=== PATIENT | female | born 1955 | race Hispanic/Latino ===

== ENCOUNTER 2020-05-19 16:18 | Inpatient (IN) | payer BC, MEDICARE ==
[~2020-05-19] VITALS: Ht 162.6 cm; Wt 84.5 kg
[2020-05-19] MEDS ORDERED: ASPIRIN 325 MG TABLET ONE (16:43)
[2020-05-19 16:59] LABS: BASOPHILS % (AUTO) 0.1 % (0.0-5.0); EOSINOPHILS % (AUTO) 0.4 % (0.0-8.0); HEMATOCRIT 34.5 % (36-48); LYMPHOCYTES % (AUTO) 5.2 % (21.0-51.0); MEAN CORPUSCULAR HEMOGLOBIN 27.9 pg (27.0-33.0); MEAN CORPUSCULAR HGB CONC 31.9 g/dL (32.0-36.0); MEAN CORPUSCULAR VOLUME 87.6 fL (79-99); MONOCYTES % (AUTO) 7.8 % (3.0-13.0); NEUTROPHILS % (AUTO) 85.9 % (40.0-77.0); PLATELET COUNT (AUTO) 170 K/uL (130-400); RED BLOOD CELL COUNT(AUTO) 3.94 MIL/uL (4.00-5.50); RED CELL DISTRIBUTION WIDTH 13.2 % (11.0-15.5); WHITE BLOOD COUNT (AUTO) 8.5 K/uL (4.8-10.8)
[2020-05-19 17:13] LABS: INR 1.07 (0.85-1.15); PROTHROMBIN TIME 11.4 SEC (9.6-11.6)
[2020-05-19 17:14] LABS: PARTIAL THROMBOPLASTIN TIME 26.6 SEC (26.3-35.5)
[2020-05-19 17:17] LABS: ALBUMIN 3.4 g/dL (3.5-5.0); BILIRUBIN,TOTAL 2.8 mg/dL (0.2-1.0); TOTAL PROTEIN, SERUM 7.9 g/dL (6.0-8.3)
[2020-05-19] MEDS ORDERED: IOHEXOL-350 75 ML VIAL IV ONE (19:14)
[2020-05-19] MEDS: 0.9%NACL 1000ML 1,000 ML IV SCH (19:15)
[2020-05-19] MEDS ORDERED: ACETAMINOPHEN 325 MG TAB PO PRN (19:15)
[2020-05-19] MEDS ORDERED: ONDANSETRON 4MG INJ IV PRN (19:15)
[2020-05-19] MEDS ORDERED: ONDANSETRON 4MG INJ ONE (19:23)
[2020-05-19] MEDS ORDERED: KETOROLAC 15MG/ML VIAL (15MG/ML) ONE (19:23)
[2020-05-19] MEDS ORDERED: HYDROMORPHONE 0.5 MG SYG (0.5MG/0.5ML) IV PRN (19:30)
[2020-05-19] MEDS ORDERED: HYDROMORPHONE 1 MG INJ IVP PRN (19:30)
[2020-05-19 19:50] LABS: HEMOGLOBIN A1C 8.2 % (4.0-6.0)
[2020-05-19] MEDS ORDERED: ZOSYN 3.375GM+NS 50ML 50 ML IV ONE (20:00)
[2020-05-19] MEDS ORDERED: FAMOTIDINE 20MG VIAL IV ONE (20:01)
[2020-05-19 20:44] LABS: APPEARANCE,URINE Clear (CLEAR); BILIRUBIN,URINE Moderate (NEGATIVE); COLOR,URINE Dark Yellow (YELLOW); GLUCOSE, URINE (UA) Negative (NEGATIVE); KETONES,URINE 40 mg/dL (NEGATIVE); LEUKOCYTE ESTERASE ,URINE Trace (NEGATIVE); NITRATE,URINE Negative (NEGATIVE); OCCULT BLOOD,URINE Trace (NEGATIVE); PROTEIN,URINE POS 1+ mg/dL (NEGATIVE)
[2020-05-19] MEDS: FAMOTIDINE 20MG VIAL IV SCH (21:00)
[2020-05-19 21:07] LABS: BACTERIA,URINE Few /HPF (None Seen); MUCUS,URINE Few LPF (None Seen); SQUAMOUS EPITHELIAL CELL,UR Moderate /HPF (0-2)
[2020-05-19 22:18] LABS: ALBUMIN 3.2 g/dL (3.5-5.0); BILIRUBIN,DIRECT 2.5 mg/dL (0.0-0.3); BILIRUBIN,TOTAL 2.9 mg/dL (0.2-1.0); TOTAL PROTEIN, SERUM 7.4 g/dL (6.0-8.3)
[2020-05-20] MEDS ORDERED: ZOSYN 3.375GM+NS 50ML 50 ML IV ONE (03:53)
[2020-05-20 05:00] LABS: BASOPHILS % (AUTO) 0.3 % (0.0-5.0); EOSINOPHILS % (AUTO) 0.8 % (0.0-8.0); HEMATOCRIT 29.6 % (36-48); LYMPHOCYTES % (AUTO) 12.4 % (21.0-51.0); MEAN CORPUSCULAR HEMOGLOBIN 28.7 pg (27.0-33.0); MEAN CORPUSCULAR HGB CONC 33.1 g/dL (32.0-36.0); MEAN CORPUSCULAR VOLUME 86.8 fL (79-99); MONOCYTES % (AUTO) 10.2 % (3.0-13.0); NEUTROPHILS % (AUTO) 75.8 % (40.0-77.0); PLATELET COUNT (AUTO) 151 K/uL (130-400); RED BLOOD CELL COUNT(AUTO) 3.41 MIL/uL (4.00-5.50); RED CELL DISTRIBUTION WIDTH 13.2 % (11.0-15.5); WHITE BLOOD COUNT (AUTO) 5.9 K/uL (4.8-10.8)
[2020-05-20] MEDS: ZOSYN 3.375GM+NS 50ML 50 ML IV SCH ×3 (05:00→20:17)
[2020-05-20 05:18] LABS: ALBUMIN 3.2 g/dL (3.5-5.0); BILIRUBIN,DIRECT 3.2 mg/dL (0.0-0.3); BILIRUBIN,TOTAL 3.7 mg/dL (0.2-1.0); CREATININE 0.9 mg/dL (0.5-1.5); POTASSIUM 4.1 mmol/L (3.5-5.1); TOTAL PROTEIN, SERUM 6.8 g/dL (6.0-8.3)
[2020-05-20 08:53] VITALS: BP 155/71
[2020-05-20] MEDS: FAMOTIDINE 20MG VIAL IV SCH ×2 (10:36→21:38)
[2020-05-20] MEDS: BENAZEPRIL HCL 10 MG TABLET PO SCH (11:45)
[2020-05-20] MEDS: CARVEDILOL 12.5 MG TABLET PO SCH ×2 (11:45→20:16)
[2020-05-20] MEDS: 0.9%NACL 1000ML 1,000 ML IV SCH ×2 (11:46→17:53)
[2020-05-20 12:00] VITALS: BP 165/72
[2020-05-20 17:39] VITALS: BP 135/66
[2020-05-20] MEDS: ACETAMINOPHEN 325 MG TAB PO PRN (20:15)
[2020-05-20 20:19] VITALS: BP 161/52
[2020-05-20] MEDS ORDERED: BENA40TA92 PO (20:50)
[2020-05-20] MEDS ORDERED: FLUO40CA7 PO (20:50)
[2020-05-20] MEDS ORDERED: SITA1TAB6 PO (20:50)
[2020-05-20] MEDS ORDERED: ROSU10TA28 PO (20:50)
[2020-05-20] MEDS ORDERED: LEVO75TA4 PO (20:50)
[2020-05-20] MEDS ORDERED: CARV25TA77 PO (20:50)
[2020-05-20 23:47] VITALS: BP 120/69
[2020-05-21] MEDS: 0.9%NACL 1000ML 1,000 ML IV SCH ×2 (02:56→11:15)
[2020-05-21 03:47] VITALS: BP 161/63
[2020-05-21] MEDS: ZOSYN 3.375GM+NS 50ML 50 ML IV SCH ×3 (04:23→20:48)
[2020-05-21 05:30] LABS: BASOPHILS % (AUTO) 0.4 % (0.0-5.0); EOSINOPHILS % (AUTO) 4.1 % (0.0-8.0); HEMATOCRIT 29.6 % (36-48); LYMPHOCYTES % (AUTO) 20.8 % (21.0-51.0); MEAN CORPUSCULAR HEMOGLOBIN 27.9 pg (27.0-33.0); MEAN CORPUSCULAR HGB CONC 31.8 g/dL (32.0-36.0); MEAN CORPUSCULAR VOLUME 87.8 fL (79-99); MONOCYTES % (AUTO) 8.5 % (3.0-13.0); NEUTROPHILS % (AUTO) 65.3 % (40.0-77.0); PLATELET COUNT (AUTO) 167 K/uL (130-400); RED BLOOD CELL COUNT(AUTO) 3.37 MIL/uL (4.00-5.50); RED CELL DISTRIBUTION WIDTH 13.4 % (11.0-15.5); WHITE BLOOD COUNT (AUTO) 5.4 K/uL (4.8-10.8)
[2020-05-21 06:16] LABS: ALBUMIN 2.8 g/dL (3.5-5.0); BILIRUBIN,TOTAL 1.8 mg/dL (0.2-1.0); CREATININE 0.8 mg/dL (0.5-1.5); POTASSIUM 3.5 mmol/L (3.5-5.1); TOTAL PROTEIN, SERUM 6.7 g/dL (6.0-8.3)
[2020-05-21] MEDS: LEVOTHYROXINE 75 MCG TABLET PO SCH (06:46)
[2020-05-21 07:30] VITALS: BP 167/71
[2020-05-21] MEDS: BENAZEPRIL HCL 10 MG TABLET PO SCH (10:12)
[2020-05-21] MEDS: CARVEDILOL 12.5 MG TABLET PO SCH ×2 (10:13→20:51)
[2020-05-21 11:00] VITALS: BP 173/70
[2020-05-21 16:00] VITALS: BP 139/73
[2020-05-21 20:12] VITALS: BP 158/76
[2020-05-21] MEDS: FAMOTIDINE 20MG VIAL IV SCH (20:46)
[2020-05-21] MEDS: ACETAMINOPHEN 325 MG TAB PO PRN (20:49)
[2020-05-22 00:16] VITALS: BP 153/74
[2020-05-22 04:20] VITALS: BP 152/53
[2020-05-22] MEDS: ZOSYN 3.375GM+NS 50ML 50 ML IV SCH ×3 (05:13→20:38)
[2020-05-22] MEDS: 0.9%NACL 1000ML 1,000 ML IV SCH ×2 (05:14→09:00)
[2020-05-22] MEDS: LEVOTHYROXINE 75 MCG TABLET PO SCH (05:14)
[2020-05-22 06:23] LABS: BASOPHILS % (AUTO) 0.3 % (0.0-5.0); EOSINOPHILS % (AUTO) 3.4 % (0.0-8.0); HEMATOCRIT 30.7 % (36-48); LYMPHOCYTES % (AUTO) 24.6 % (21.0-51.0); MEAN CORPUSCULAR HGB CONC 31.9 g/dL (32.0-36.0); MEAN CORPUSCULAR VOLUME 87.7 fL (79-99); MONOCYTES % (AUTO) 8.7 % (3.0-13.0); NEUTROPHILS % (AUTO) 62.2 % (40.0-77.0); PLATELET COUNT (AUTO) 189 K/uL (130-400); RED CELL DISTRIBUTION WIDTH 13.4 % (11.0-15.5); WHITE BLOOD COUNT (AUTO) 6.1 K/uL (4.8-10.8)
[2020-05-22 06:58] LABS: ALBUMIN 2.9 g/dL (3.5-5.0); BILIRUBIN,TOTAL 1.1 mg/dL (0.2-1.0); CREATININE 0.9 mg/dL (0.5-1.5); POTASSIUM 3.4 mmol/L (3.5-5.1); THYROID STIMULATING HORMONE 4.89 uIU/mL (0.36-3.74); TOTAL PROTEIN, SERUM 6.9 g/dL (6.0-8.3)
[2020-05-22 08:00] VITALS: BP 163/69
[2020-05-22] MEDS ORDERED: AMLODIPINE 5 MG TAB PO SCH (09:00)
[2020-05-22] MEDS: CARVEDILOL 12.5 MG TABLET PO SCH ×2 (09:00→20:38)
[2020-05-22] MEDS ORDERED: LIDOCAINE HCL-MPF 1% 2ML VIAL IV PRN (09:30)
[2020-05-22] MEDS ORDERED: POTASSIUM CHLORIDE 20MEQ/100ML 100 ML IV PRN (09:30)
[2020-05-22] MEDS ORDERED: POTASSIUM CHLORIDE 10% ELIXIR 20 MEQ/15 ML UDCUP PO PRN (09:30)
[2020-05-22] MEDS ORDERED: MAGNESIUM 2GM PREMIX 50ML 50 ML IV PRN (09:30)
[2020-05-22] MEDS ORDERED: LEVOTHYROXINE 75 MCG TABLET PO SCH (09:46)
[2020-05-22] MEDS: SITAGLIPTIN PHOS PO SCH ×2 (10:02→20:46)
[2020-05-22] MEDS: METFORMIN HCL PO SCH ×2 (10:02→20:46)
[2020-05-22] MEDS: FLUOXETINE HCL 20 MG CAPSULE PO SCH (10:33)
[2020-05-22] MEDS: FAMOTIDINE 20MG VIAL IV SCH (10:33)
[2020-05-22] MEDS: BENAZEPRIL HCL 10 MG TABLET PO SCH ×2 (10:34→20:37)
[2020-05-22 11:00] VITALS: BP 156/80
[2020-05-22] MEDS: KCL 20 MEQ ERTAB PO PRN ×2 (12:26→14:57)
[2020-05-22 16:00] VITALS: BP 164/74
[2020-05-22 20:16] VITALS: BP 169/76
[2020-05-22] MEDS: ATORVASTATIN 20 MG TABLET PO SCH (20:37)
[2020-05-23 00:16] VITALS: BP 175/78
[2020-05-23] MEDS: 0.9%NACL 1000ML 1,000 ML IV SCH ×3 (00:22→20:40)
[2020-05-23 04:20] VITALS: BP 147/71
[2020-05-23 06:07] LABS: HEMATOCRIT 30.6 % (36-48); MEAN CORPUSCULAR HGB CONC 31.7 g/dL (32.0-36.0); MEAN CORPUSCULAR VOLUME 88.2 fL (79-99); RED BLOOD CELL COUNT(AUTO) 3.47 MIL/uL (4.00-5.50); RED CELL DISTRIBUTION WIDTH 13.5 % (11.0-15.5); WHITE BLOOD COUNT (AUTO) 6.4 K/uL (4.8-10.8)
[2020-05-23] MEDS: LEVOTHYROXINE 75 MCG TABLET PO SCH (06:20)
[2020-05-23] MEDS: ZOSYN 3.375GM+NS 50ML 50 ML IV SCH ×3 (06:20→20:26)
[2020-05-23 06:21] LABS: ALBUMIN 2.8 g/dL (3.5-5.0); BILIRUBIN,TOTAL 0.9 mg/dL (0.2-1.0); CREATININE 0.9 mg/dL (0.5-1.5); MAGNESIUM 1.6 mg/dL (1.80-2.40); POTASSIUM 3.3 mmol/L (3.5-5.1); TOTAL PROTEIN, SERUM 6.8 g/dL (6.0-8.3)
[2020-05-23 08:30] VITALS: BP 151/75
[2020-05-23] MEDS: METFORMIN HCL PO SCH ×2 (09:00→20:40)
[2020-05-23] MEDS: SITAGLIPTIN PHOS PO SCH ×2 (09:00→20:40)
[2020-05-23] MEDS: BENAZEPRIL HCL 10 MG TABLET PO SCH ×2 (09:28→20:28)
[2020-05-23] MEDS: FLUOXETINE HCL 20 MG CAPSULE PO SCH (09:28)
[2020-05-23] MEDS: CARVEDILOL 12.5 MG TABLET PO SCH ×2 (09:29→20:40)
[2020-05-23 11:35] VITALS: BP 159/79
[2020-05-23 16:00] VITALS: BP 154/74
[2020-05-23] MEDS: KCL 20 MEQ ERTAB PO PRN ×2 (16:07→18:09)
[2020-05-23 20:12] VITALS: BP 137/79
[2020-05-23] MEDS: ATORVASTATIN 20 MG TABLET PO SCH (20:27)
[2020-05-23] MEDS: FAMOTIDINE 20MG VIAL IV SCH (20:28)
[2020-05-24] VITALS (27 sets, daily range): BP systolic 124–192; BP diastolic 68–99
[2020-05-24 06:12] LABS: HEMATOCRIT 33.8 % (36-48); MEAN CORPUSCULAR HGB CONC 31.7 g/dL (32.0-36.0); MEAN CORPUSCULAR VOLUME 88.5 fL (79-99); RED BLOOD CELL COUNT(AUTO) 3.82 MIL/uL (4.00-5.50); RED CELL DISTRIBUTION WIDTH 13.6 % (11.0-15.5); WHITE BLOOD COUNT (AUTO) 6.9 K/uL (4.8-10.8)
[2020-05-24] MEDS: LEVOTHYROXINE 75 MCG TABLET PO SCH (06:30)
[2020-05-24] MEDS: ZOSYN 3.375GM+NS 50ML 50 ML IV SCH ×3 (06:31→19:59)
[2020-05-24 07:00] LABS: ALBUMIN 3.4 g/dL (3.5-5.0); CREATININE 0.9 mg/dL (0.5-1.5); MAGNESIUM 2.4 mg/dL (1.80-2.40); POTASSIUM 3.7 mmol/L (3.5-5.1)
[2020-05-24] MEDS: METFORMIN HCL PO SCH ×2 (08:04→20:59)
[2020-05-24] MEDS: FLUOXETINE HCL 20 MG CAPSULE PO SCH (08:04)
[2020-05-24] MEDS: SITAGLIPTIN PHOS PO SCH ×2 (08:04→20:59)
[2020-05-24] MEDS: 0.9%NACL 1000ML 1,000 ML IV SCH ×3 (08:04→10:25)
[2020-05-24] MEDS ORDERED: BUPIVACAINE/PF 0.5% 30ML VIAL ONE (08:17)
[2020-05-24] MEDS ORDERED: ONDANSETRON 4MG INJ ONE (08:53)
[2020-05-24] MEDS ORDERED: LIDOCAINE PF 100MG/5ML (2%) SYRINGE 5ML ONE (08:53)
[2020-05-24] MEDS ORDERED: PROPOFOL 10 MG/ML 20ML VIAL IV ONE (08:53)
[2020-05-24] MEDS ORDERED: DEXAMETHASONE SOD PHOSPHATE 10MG/ML 1ML VIAL ONE (08:53)
[2020-05-24] MEDS ORDERED: MIDAZOLAM HCL 1 MG/ML 2ML VIAL ONE (08:54)
[2020-05-24] MEDS ORDERED: FENTANYL CITRATE PF 50 MCG/1 ML 2ML VIAL ONE (08:54)
[2020-05-24] MEDS ORDERED: ROCURONIUM 10MG/1ML SYR 10 MG/ML ML ONE (08:55)
[2020-05-24] MEDS ORDERED: NEOSTIGMINE 5MG/5ML SYR IV ONE (10:13)
[2020-05-24] MEDS ORDERED: GLYCOPYRROLATE 1 MG/5 ML SYRINGE ONE (10:13)
[2020-05-24] MEDS ORDERED: MEPERIDINE-PF 25 MG/ML SYG ONE (10:51)
[2020-05-24] MEDS: MEPERIDINE-PF 25 MG/ML SYG ONE ×2 (11:01→11:40)
[2020-05-24] MEDS: CARVEDILOL 12.5 MG TABLET PO SCH ×2 (13:07→19:59)
[2020-05-24] MEDS: BENAZEPRIL HCL 10 MG TABLET PO SCH ×2 (13:08→19:57)
[2020-05-24] MEDS: ATORVASTATIN 20 MG TABLET PO SCH (19:57)
[2020-05-24] MEDS: FAMOTIDINE 20MG VIAL IV SCH (19:57)
[2020-05-25] VITALS (7 sets, daily range): BP systolic 126–180; BP diastolic 63–99
[2020-05-25] MEDS: ZOSYN 3.375GM+NS 50ML 50 ML IV SCH ×3 (03:50→20:19)
[2020-05-25] MEDS: HYDROMORPHONE 1 MG INJ IVP PRN ×3 (03:50→20:23)
[2020-05-25] MEDS: 0.9%NACL 1000ML 1,000 ML IV SCH ×2 (03:50→14:29)
[2020-05-25 04:45] LABS: HEMATOCRIT 35.5 % (36-48); MEAN CORPUSCULAR HEMOGLOBIN 28.2 pg (27.0-33.0); MEAN CORPUSCULAR HGB CONC 31.8 g/dL (32.0-36.0); MEAN CORPUSCULAR VOLUME 88.5 fL (79-99); RED BLOOD CELL COUNT(AUTO) 4.01 MIL/uL (4.00-5.50); RED CELL DISTRIBUTION WIDTH 13.9 % (11.0-15.5); WHITE BLOOD COUNT (AUTO) 15.2 K/uL (4.8-10.8)
[2020-05-25 05:04] LABS: ALBUMIN 3.1 g/dL (3.5-5.0); BILIRUBIN,TOTAL 1.7 mg/dL (0.2-1.0); CREATININE 0.8 mg/dL (0.5-1.5); POTASSIUM 3.6 mmol/L (3.5-5.1); TOTAL PROTEIN, SERUM 7.7 g/dL (6.0-8.3)
[2020-05-25] MEDS: LEVOTHYROXINE 75 MCG TABLET PO SCH (05:30)
[2020-05-25] MEDS: SITAGLIPTIN PHOS PO SCH ×2 (09:00→20:33)
[2020-05-25] MEDS: METFORMIN HCL PO SCH ×2 (09:00→20:33)
[2020-05-25] MEDS: BENAZEPRIL HCL 10 MG TABLET PO SCH ×2 (09:54→20:20)
[2020-05-25] MEDS: FLUOXETINE HCL 20 MG CAPSULE PO SCH (09:54)
[2020-05-25] MEDS: CARVEDILOL 12.5 MG TABLET PO SCH ×2 (09:55→20:22)
[2020-05-25] MEDS: HYDROMORPHONE 0.5 MG SYG (0.5MG/0.5ML) IVP PRN (14:28)
[2020-05-25] MEDS: ATORVASTATIN 20 MG TABLET PO SCH (20:19)
[2020-05-25] MEDS: FAMOTIDINE 20MG VIAL IV SCH (20:21)
[2020-05-26] MEDS: 0.9%NACL 1000ML 1,000 ML IV SCH ×5 (01:11→20:02)
[2020-05-26 04:00] VITALS: BP 153/69
[2020-05-26] MEDS: LEVOTHYROXINE 75 MCG TABLET PO SCH (05:09)
[2020-05-26] MEDS: ZOSYN 3.375GM+NS 50ML 50 ML IV SCH ×3 (05:09→19:52)
[2020-05-26 06:17] LABS: BASOPHILS % (AUTO) 0.1 % (0.0-5.0); HEMATOCRIT 32.8 % (36-48); LYMPHOCYTES % (AUTO) 5.4 % (21.0-51.0); MEAN CORPUSCULAR HEMOGLOBIN 28.5 pg (27.0-33.0); MEAN CORPUSCULAR HGB CONC 32.3 g/dL (32.0-36.0); MEAN CORPUSCULAR VOLUME 88.2 fL (79-99); MONOCYTES % (AUTO) 3.4 % (3.0-13.0); NEUTROPHILS % (AUTO) 90.2 % (40.0-77.0); PLATELET COUNT (AUTO) 237 K/uL (130-400); RED BLOOD CELL COUNT(AUTO) 3.72 MIL/uL (4.00-5.50); WHITE BLOOD COUNT (AUTO) 16.2 K/uL (4.8-10.8)
[2020-05-26 06:34] LABS: ALBUMIN 2.5 g/dL (3.5-5.0); CREATININE 0.9 mg/dL (0.5-1.5); POTASSIUM 3.8 mmol/L (3.5-5.1); TOTAL PROTEIN, SERUM 7.1 g/dL (6.0-8.3)
[2020-05-26 08:20] VITALS: BP 136/70
[2020-05-26] MEDS: SITAGLIPTIN PHOS PO SCH ×2 (09:00→19:53)
[2020-05-26] MEDS: METFORMIN HCL PO SCH ×2 (09:00→19:53)
[2020-05-26] MEDS: FLUOXETINE HCL 20 MG CAPSULE PO SCH (09:40)
[2020-05-26] MEDS: BENAZEPRIL HCL 10 MG TABLET PO SCH ×2 (09:41→19:53)
[2020-05-26] MEDS: CARVEDILOL 12.5 MG TABLET PO SCH ×2 (09:42→19:53)
[2020-05-26 12:34] VITALS: BP 180/78
[2020-05-26] MEDS ORDERED: DEXTROSE 50%-WATER 50 ML DISP.SYRIN IV PRN (16:15)
[2020-05-26] MEDS ORDERED: GLUCAGON 1MG KIT 1 MG ML IM PRN (16:15)
[2020-05-26] MEDS: INSULIN HUMULIN R 100 UNIT/ML 3ML SQ SCH ×2 (16:30→20:01)
[2020-05-26 19:18] VITALS: BP 136/85
[2020-05-26] MEDS: ATORVASTATIN 20 MG TABLET PO SCH (19:53)
[2020-05-26] MEDS: FAMOTIDINE 20MG VIAL IV SCH (19:53)
[2020-05-26] MEDS: HYDROMORPHONE 0.5 MG SYG (0.5MG/0.5ML) IVP PRN (19:57)
[2020-05-26 20:00] VITALS: BP 142/76
[2020-05-27] VITALS (7 sets, daily range): BP systolic 145–174; BP diastolic 72–88
[2020-05-27] MEDS: 0.9%NACL 1000ML 1,000 ML IV SCH ×6 (04:39→21:24)
[2020-05-27] MEDS: ZOSYN 3.375GM+NS 50ML 50 ML IV SCH ×3 (04:40→19:44)
[2020-05-27 04:46] LABS: HEMATOCRIT 30.5 % (36-48); MEAN CORPUSCULAR HEMOGLOBIN 28.6 pg (27.0-33.0); MEAN CORPUSCULAR HGB CONC 32.5 g/dL (32.0-36.0); MEAN CORPUSCULAR VOLUME 88.2 fL (79-99); PLATELET COUNT (AUTO) 231 K/uL (130-400); RED BLOOD CELL COUNT(AUTO) 3.46 MIL/uL (4.00-5.50); RED CELL DISTRIBUTION WIDTH 14.1 % (11.0-15.5); WHITE BLOOD COUNT (AUTO) 14.8 K/uL (4.8-10.8)
[2020-05-27 05:07] LABS: ALBUMIN 2.3 g/dL (3.5-5.0); BILIRUBIN,TOTAL 1.9 mg/dL (0.2-1.0); CREATININE 0.8 mg/dL (0.5-1.5); POTASSIUM 3.3 mmol/L (3.5-5.1); TOTAL PROTEIN, SERUM 6.8 g/dL (6.0-8.3)
[2020-05-27] MEDS: KCL 20 MEQ ERTAB PO PRN ×2 (05:18→19:06)
[2020-05-27] MEDS: LEVOTHYROXINE 75 MCG TABLET PO SCH (05:18)
[2020-05-27 06:22] LABS: BAND NEUTROPHILS % (MANUAL) 1 % (0-2); LYMPHOCYTES % (MANUAL) 4 % (22-44); MONOCYTES % (MANUAL) 1 % (2-9); SEGMENTED NEUTROPHILS % 94 % (40-70)
[2020-05-27 06:23] LABS: MAN.DIFF COMMENT-IMPRESSION MANUAL DIFFERENTIAL; PLATELET MORPHOLOGY COMMENT ADEQUATE
[2020-05-27] MEDS: INSULIN HUMULIN R 100 UNIT/ML 3ML SQ SCH ×4 (07:08→21:00)
[2020-05-27] MEDS: METFORMIN HCL PO SCH ×2 (09:00→21:00)
[2020-05-27] MEDS: SITAGLIPTIN PHOS PO SCH ×2 (09:00→21:00)
[2020-05-27] MEDS: CARVEDILOL 12.5 MG TABLET PO SCH ×2 (09:50→21:24)
[2020-05-27] MEDS: FLUOXETINE HCL 20 MG CAPSULE PO SCH (09:51)
[2020-05-27] MEDS: BENAZEPRIL HCL 10 MG TABLET PO SCH ×2 (09:51→21:24)
[2020-05-27] MEDS ORDERED: POTASSIUM CHLORIDE 20MEQ/100ML 100 ML IV PRN (18:30)
[2020-05-27] MEDS ORDERED: POTASSIUM CHLORIDE 10% ELIXIR 20 MEQ/15 ML UDCUP PO PRN (18:30)
[2020-05-27] MEDS ORDERED: LIDOCAINE HCL-MPF 1% 2ML VIAL IV PRN (18:30)
[2020-05-27] MEDS ORDERED: KCL 20 MEQ ERTAB PO PRN (18:30)
[2020-05-27] MEDS: HYDROMORPHONE 0.5 MG SYG (0.5MG/0.5ML) IVP PRN (19:17)
[2020-05-27] MEDS: ATORVASTATIN 20 MG TABLET PO SCH (21:23)
[2020-05-27] MEDS: FAMOTIDINE 20MG VIAL IV SCH (21:24)
[2020-05-28 03:23] VITALS: BP 155/82
[2020-05-28 04:52] LABS: BASOPHILS % (AUTO) 0.1 % (0.0-5.0); LYMPHOCYTES % (AUTO) 3.7 % (21.0-51.0); MEAN CORPUSCULAR HEMOGLOBIN 28.1 pg (27.0-33.0); MEAN CORPUSCULAR HGB CONC 32.3 g/dL (32.0-36.0); MEAN CORPUSCULAR VOLUME 87.1 fL (79-99); MONOCYTES % (AUTO) 4.4 % (3.0-13.0); NEUTROPHILS % (AUTO) 91.3 % (40.0-77.0); PLATELET COUNT (AUTO) 253 K/uL (130-400); RED BLOOD CELL COUNT(AUTO) 3.56 MIL/uL (4.00-5.50); WHITE BLOOD COUNT (AUTO) 13.6 K/uL (4.8-10.8)
[2020-05-28 05:15] LABS: ALBUMIN 2.1 g/dL (3.5-5.0); BILIRUBIN,TOTAL 6.4 mg/dL (0.2-1.0); CREATININE 0.6 mg/dL (0.5-1.5); POTASSIUM 3.4 mmol/L (3.5-5.1); TOTAL PROTEIN, SERUM 6.5 g/dL (6.0-8.3)
[2020-05-28] MEDS: ZOSYN 3.375GM+NS 50ML 50 ML IV SCH ×3 (05:18→20:25)
[2020-05-28] MEDS: LEVOTHYROXINE 75 MCG TABLET PO SCH (05:21)
[2020-05-28] MEDS: INSULIN HUMULIN R 100 UNIT/ML 3ML SQ SCH ×4 (05:32→21:00)
[2020-05-28] MEDS: CARVEDILOL 12.5 MG TABLET PO SCH ×2 (08:33→20:23)
[2020-05-28] MEDS: BENAZEPRIL HCL 10 MG TABLET PO SCH ×2 (08:33→20:24)
[2020-05-28] MEDS: FLUOXETINE HCL 20 MG CAPSULE PO SCH (08:33)
[2020-05-28 08:38] VITALS: BP 164/84
[2020-05-28] MEDS: METFORMIN HCL PO SCH ×2 (08:39→20:24)
[2020-05-28] MEDS: SITAGLIPTIN PHOS PO SCH ×2 (08:39→20:24)
[2020-05-28] MEDS: 0.9%NACL 1000ML 1,000 ML IV SCH ×4 (11:15→23:15)
[2020-05-28 11:36] VITALS: BP 168/82
[2020-05-28 16:38] VITALS: BP 170/80
[2020-05-28] MEDS: KCL 20 MEQ ERTAB PO PRN (18:03)
[2020-05-28] MEDS: ACETAMINOPHEN 325 MG TAB PO PRN (18:05)
[2020-05-28] MEDS: HYDROMORPHONE 0.5 MG SYG (0.5MG/0.5ML) IVP PRN ×2 (18:10→20:25)
[2020-05-28 20:00] VITALS: BP 98/52
[2020-05-28] MEDS: ATORVASTATIN 20 MG TABLET PO SCH (20:23)
[2020-05-28] MEDS: FAMOTIDINE 20MG VIAL IV SCH (20:24)
[2020-05-29] VITALS (27 sets, daily range): BP systolic 103–143; BP diastolic 50–77
[2020-05-29] MEDS: ZOSYN 3.375GM+NS 50ML 50 ML IV SCH ×3 (05:46→20:23)
[2020-05-29] MEDS: LEVOTHYROXINE 75 MCG TABLET PO SCH (05:47)
[2020-05-29] MEDS: 0.9%NACL 1000ML 1,000 ML IV SCH ×4 (05:49→17:09)
[2020-05-29] MEDS: INSULIN HUMULIN R 100 UNIT/ML 3ML SQ SCH ×4 (06:04→20:34)
[2020-05-29 06:23] LABS: BASOPHILS % (AUTO) 0.2 % (0.0-5.0); HEMATOCRIT 30.6 % (36-48); LYMPHOCYTES % (AUTO) 3.3 % (21.0-51.0); MEAN CORPUSCULAR HEMOGLOBIN 28.2 pg (27.0-33.0); MEAN CORPUSCULAR VOLUME 88.2 fL (79-99); MONOCYTES % (AUTO) 5.3 % (3.0-13.0); NEUTROPHILS % (AUTO) 90.6 % (40.0-77.0); PLATELET COUNT (AUTO) 256 K/uL (130-400); RED BLOOD CELL COUNT(AUTO) 3.47 MIL/uL (4.00-5.50); RED CELL DISTRIBUTION WIDTH 14.6 % (11.0-15.5); WHITE BLOOD COUNT (AUTO) 17.5 K/uL (4.8-10.8)
[2020-05-29 06:39] LABS: ALBUMIN 1.8 g/dL (3.5-5.0); BILIRUBIN,TOTAL 3.2 mg/dL (0.2-1.0); CREATININE 1.9 mg/dL (0.5-1.5); POTASSIUM 3.4 mmol/L (3.5-5.1); TOTAL PROTEIN, SERUM 6.3 g/dL (6.0-8.3)
[2020-05-29] MEDS: METFORMIN HCL PO SCH ×2 (07:52→20:34)
[2020-05-29] MEDS: SITAGLIPTIN PHOS PO SCH ×2 (07:52→20:34)
[2020-05-29] MEDS ORDERED: PROPOFOL 10 MG/ML 20ML VIAL IV ONE (07:52)
[2020-05-29] MEDS ORDERED: SUCCINYLCHOLINE 200MG/10ML SYR ONE (07:52)
[2020-05-29] MEDS: INDOMETHACIN 50 MG SUPP.RECT RC SCH (08:00)
[2020-05-29] MEDS ORDERED: IOHEXOL-350 50ML VIAL IV ONE (08:07)
[2020-05-29] MEDS ORDERED: EPHEDRINE SULFATE 50 MG/ML AMPULE ONE (08:12)
[2020-05-29] MEDS ORDERED: PHENYLEPHRINE HCL 10 MG/ML 1ML VIAL IV ONE (08:36)
[2020-05-29] MEDS: BENAZEPRIL HCL 10 MG TABLET PO SCH ×2 (09:00→20:23)
[2020-05-29] MEDS: CARVEDILOL 12.5 MG TABLET PO SCH ×2 (09:00→20:23)
[2020-05-29] MEDS: FLUOXETINE HCL 20 MG CAPSULE PO SCH (09:00)
[2020-05-29] MEDS: FAMOTIDINE 20MG VIAL IV SCH (20:22)
[2020-05-29] MEDS: ATORVASTATIN 20 MG TABLET PO SCH (20:22)
[2020-05-30 03:34] VITALS: BP 125/62
[2020-05-30] MEDS: 0.9%NACL 1000ML 1,000 ML IV SCH ×5 (04:12→23:15)
[2020-05-30] MEDS: ZOSYN 3.375GM+NS 50ML 50 ML IV SCH ×3 (05:05→20:19)
[2020-05-30] MEDS: LEVOTHYROXINE 75 MCG TABLET PO SCH (05:05)
[2020-05-30] MEDS: INSULIN HUMULIN R 100 UNIT/ML 3ML SQ SCH ×4 (05:51→20:30)
[2020-05-30 06:09] LABS: BASOPHILS % (AUTO) 0.1 % (0.0-5.0); EOSINOPHILS % (AUTO) 0.3 % (0.0-8.0); LYMPHOCYTES % (AUTO) 3.9 % (21.0-51.0); MEAN CORPUSCULAR HEMOGLOBIN 28.3 pg (27.0-33.0); MEAN CORPUSCULAR HGB CONC 32.3 g/dL (32.0-36.0); MEAN CORPUSCULAR VOLUME 87.5 fL (79-99); MONOCYTES % (AUTO) 4.5 % (3.0-13.0); NEUTROPHILS % (AUTO) 90.5 % (40.0-77.0); PLATELET COUNT (AUTO) 228 K/uL (130-400); RED BLOOD CELL COUNT(AUTO) 2.97 MIL/uL (4.00-5.50); RED CELL DISTRIBUTION WIDTH 14.8 % (11.0-15.5); WHITE BLOOD COUNT (AUTO) 14.5 K/uL (4.8-10.8)
[2020-05-30 06:32] LABS: ALBUMIN 1.5 g/dL (3.5-5.0); BILIRUBIN,TOTAL 1.8 mg/dL (0.2-1.0); CREATININE 3.1 mg/dL (0.5-1.5); POTASSIUM 3.3 mmol/L (3.5-5.1); TOTAL PROTEIN, SERUM 5.9 g/dL (6.0-8.3)
[2020-05-30 07:45] VITALS: BP 145/71
[2020-05-30] MEDS: INDOMETHACIN 50 MG SUPP.RECT RC SCH (08:00)
[2020-05-30] MEDS: SITAGLIPTIN PHOS PO SCH (08:07)
[2020-05-30] MEDS: METFORMIN HCL PO SCH (08:07)
[2020-05-30] MEDS: CARVEDILOL 12.5 MG TABLET PO SCH ×2 (08:13→20:19)
[2020-05-30] MEDS: BENAZEPRIL HCL 10 MG TABLET PO SCH ×2 (08:13→20:20)
[2020-05-30] MEDS: FLUOXETINE HCL 20 MG CAPSULE PO SCH (08:14)
[2020-05-30 11:36] VITALS: BP 132/65
[2020-05-30] MEDS: KCL 20 MEQ ERTAB PO PRN ×2 (12:42→16:05)
[2020-05-30 16:19] VITALS: BP 118/56
[2020-05-30 20:00] VITALS: BP 125/59
[2020-05-30] MEDS: ATORVASTATIN 20 MG TABLET PO SCH (20:19)
[2020-05-30] MEDS: FAMOTIDINE 20MG VIAL IV SCH (20:20)
[2020-05-31 00:01] VITALS: BP 116/56
[2020-05-31] MEDS: 0.9%NACL 1000ML 1,000 ML IV SCH ×3 (01:15→11:15)
[2020-05-31 03:44] VITALS: BP 124/61
[2020-05-31 04:54] LABS: BASOPHILS % (AUTO) 0.2 % (0.0-5.0); EOSINOPHILS % (AUTO) 1.6 % (0.0-8.0); HEMATOCRIT 25.7 % (36-48); MEAN CORPUSCULAR HGB CONC 31.9 g/dL (32.0-36.0); MEAN CORPUSCULAR VOLUME 87.7 fL (79-99); MONOCYTES % (AUTO) 4.7 % (3.0-13.0); NEUTROPHILS % (AUTO) 86.5 % (40.0-77.0); PLATELET COUNT (AUTO) 249 K/uL (130-400); RED BLOOD CELL COUNT(AUTO) 2.93 MIL/uL (4.00-5.50); RED CELL DISTRIBUTION WIDTH 15.1 % (11.0-15.5); WHITE BLOOD COUNT (AUTO) 10.9 K/uL (4.8-10.8)
[2020-05-31 05:09] LABS: ALBUMIN 1.6 g/dL (3.5-5.0); BILIRUBIN,TOTAL 1.7 mg/dL (0.2-1.0); CREATININE 4.1 mg/dL (0.5-1.5); POTASSIUM 3.3 mmol/L (3.5-5.1)
[2020-05-31] MEDS: LEVOTHYROXINE 75 MCG TABLET PO SCH (05:23)
[2020-05-31] MEDS: ZOSYN 3.375GM+NS 50ML 50 ML IV SCH ×2 (05:23→13:20)
[2020-05-31] MEDS: KCL 20 MEQ ERTAB PO PRN (05:24)
[2020-05-31] MEDS: INSULIN HUMULIN R 100 UNIT/ML 3ML SQ SCH ×3 (05:32→16:30)
[2020-05-31 08:06] VITALS: BP 130/62
[2020-05-31] MEDS: BENAZEPRIL HCL 10 MG TABLET PO SCH (10:01)
[2020-05-31] MEDS: FLUOXETINE HCL 20 MG CAPSULE PO SCH (10:01)
[2020-05-31] MEDS: CARVEDILOL 12.5 MG TABLET PO SCH (10:02)
[2020-05-31 11:46] VITALS: BP 151/72
[2020-05-31 16:20] VITALS: BP 115/64
[2020-05-31] MEDS ORDERED: METR500T PO (18:06)
== END 2020-05-31 19:38 | disposition home or self-care (01) | DRG 417 ==
LOC: EDH 16:18 → EDHIP 16:19 → INTOOBSV 19:08 → OBSVTOIN 19:08 → UNDOADMOB 19:08 → EDHIP 19:08 → 3CH 05-20 06:31 → EDHIP 05-20 06:31 → 3CH 05-20 06:31
PROVIDERS: ADMIT Internal Medicine; ATTEND Internal Medicine
PROC: 0FT44ZZ Resection of Gallbladder, Percutaneous Endoscopic Approach (ICD-10-PCS; principal; 2020-05-24 09:13)
PROC: 0FJB8ZZ Inspection of Hepatobiliary Duct, Via Natural or Artificial Opening Endoscopic (ICD-10-PCS; 2020-05-29)
PROC: BF111ZZ Fluoroscopy of Biliary and Pancreatic Ducts using Low Osmolar Contrast (ICD-10-PCS; 2020-05-29)
DX: K80.00 Calculus of gallbladder with acute cholecystitis without obstruction (principal); J96.91 Respiratory failure, unspecified with hypoxia; E87.1 Hypo-osmolality and hyponatremia; D64.9 Anemia, unspecified; E03.9 Hypothyroidism, unspecified; E11.9 Type 2 diabetes mellitus without complications; E78.5 Hyperlipidemia, unspecified; I10 Essential (primary) hypertension; E66.9 Obesity, unspecified; E87.6 Hypokalemia; N19 Unspecified kidney failure; E80.6 Other disorders of bilirubin metabolism; K83.8 Other specified diseases of biliary tract; Z20.822 Contact with and (suspected) exposure to COVID-19; K76.0 Fatty (change of) liver, not elsewhere classified; F32.9 Major depressive disorder, single episode, unspecified; R00.1 Bradycardia, unspecified; R74.8 Abnormal levels of other serum enzymes; Z53.8 Procedure and treatment not carried out for other reasons; E87.8 Other disorders of electrolyte and fluid balance, not elsewhere classified; K59.00 Constipation, unspecified; Z98.84 Bariatric surgery status; Z68.32 Body mass index [BMI] 32.0-32.9, adult; Z82.3 Family history of stroke; Z82.49 Family history of ischemic heart disease and other diseases of the circulatory system; Z83.3 Family history of diabetes mellitus
CPT/HCPCS: 36415; 43260; 71045; 74177; 74181; 74330; 76705; 78226; 80048; 80053; 80076; 81001; 82150; 82550; 82948; 83036; 83690; 83735; 84145; 84443; 84484; 85025; 85027; 85610; 85730; 87040; 87426; 93005; A4606; A9537; C1769; G0378; J0330; J1100; J1170; J1815; J1885; J2001; J2175; J2250; J2370; J2405; J2543; J2704; J2710; J3010; J3475; J3490; J7030; Q9967

== ENCOUNTER 2020-06-06 22:08 | Inpatient (IN) | payer BC, MEDICARE ==
[~2020-06-06] VITALS: Ht 170.2 cm; Wt 75.3 kg
[~2020-06-06 22:08] MED LIST: BENA40TA92 PO; CARV25TA77 PO; FLUO40CA7 PO; LEVO75TA4 PO; METR500T PO; ROSU10TA28 PO; SITA1TAB6 PO
[2020-06-06 22:31] LABS: APPEARANCE,URINE Cloudy (CLEAR); BILIRUBIN,URINE Negative (NEGATIVE); COLOR,URINE Yellow (YELLOW); GLUCOSE, URINE (UA) Negative (NEGATIVE); KETONES,URINE Trace mg/dL (NEGATIVE); LEUKOCYTE ESTERASE ,URINE Large (NEGATIVE); NITRATE,URINE Negative (NEGATIVE); OCCULT BLOOD,URINE Trace (NEGATIVE); PROTEIN,URINE POS 2+ mg/dL (NEGATIVE); UROBILINOGEN,URINE 0.2 mg/dL (0.2-1.0)
[2020-06-06] MEDS ORDERED: ONDANSETRON 4MG INJ ONE (22:44)
[2020-06-06] MEDS ORDERED: 0.9%NACL 1000ML 1,000 ML IV ONE (22:45)
[2020-06-06 22:52] LABS: BACTERIA,URINE None Seen /HPF (None Seen); RBC,URINE 0-1 /HPF (0-1)
[2020-06-06 22:53] LABS: SQUAMOUS EPITHELIAL CELL,UR Few /HPF (0-2); YEAST,URINE BUDDING Few /HPF (None Seen)
[2020-06-06 23:00] LABS: BASOPHILS % (AUTO) 0.2 % (0.0-5.0); EOSINOPHILS % (AUTO) 0.5 % (0.0-8.0); HEMATOCRIT 29.5 % (36-48); LYMPHOCYTES % (AUTO) 6.3 % (21.0-51.0); MEAN CORPUSCULAR HEMOGLOBIN 28.5 pg (27.0-33.0); MEAN CORPUSCULAR HGB CONC 31.9 g/dL (32.0-36.0); MEAN CORPUSCULAR VOLUME 89.4 fL (79-99); MONOCYTES % (AUTO) 5.7 % (3.0-13.0); NEUTROPHILS % (AUTO) 82.6 % (40.0-77.0); NUCLEATED RED BLOOD CELLS 0.1 % (0.0-0.19); PLATELET COUNT (AUTO) 290 K/uL (130-400); RED CELL DISTRIBUTION WIDTH 15.5 % (11.0-15.5); WHITE BLOOD COUNT (AUTO) 17.3 K/uL (4.8-10.8)
[2020-06-06 23:00] LABS: AMPHET/METH SCREEN,URINE NEGATIVE (NEGATIVE); BARBITURATE SCREEN, URINE NEGATIVE (NEGATIVE); BENZODIAZEPINES SCREEN,URINE NEGATIVE (NEGATIVE); CANNABINOID SCREEN,URINE NEGATIVE (NEGATIVE); COCAINE SCREEN,URINE NEGATIVE (NEGATIVE); OPIATE SCREEN,URINE NEGATIVE (NEGATIVE); PHENCYCLIDINE SCREEN,URINE NEGATIVE (NEGATIVE)
[2020-06-06 23:16] LABS: POTASSIUM 4.8 mmol/L (3.5-5.1); TOTAL PROTEIN, SERUM 6.7 g/dL (6.0-8.3)
[2020-06-06] MEDS ORDERED: CEFTRIAXONE 1G VIAL ONE (23:17)
[2020-06-06] MEDS ORDERED: 0.9%NACL 1000ML 2,000 ML IV ONE (23:17)
[2020-06-06 23:22] LABS: CREATININE 8.9 mg/dL (0.5-1.5)
[2020-06-06] MEDS ORDERED: PANTOPRAZOLE 40 MG/VIAL ONE (23:52)
[2020-06-07] VITALS (30 sets, daily range): BP systolic 125–146; BP diastolic 53–79
[2020-06-07] MEDS ORDERED: THIAMINE HCL 100 MG/ML 2ML VIAL ONE (00:08)
[2020-06-07] MEDS ORDERED: ONDANSETRON 4MG INJ IV PRN (01:45)
[2020-06-07] MEDS: 0.9%NACL 1000ML 1,000 ML IV SCH ×2 (01:45→21:45)
[2020-06-07] MEDS ORDERED: MORPHINE 2 MG SYG IV PRN (01:45)
[2020-06-07] MEDS: MEROPENEM 500 MG VIAL IV SCH ×3 (01:45→17:45)
[2020-06-07] MEDS ORDERED: ACETAMINOPHEN 325 MG TAB PO PRN ×2 (01:45)
[2020-06-07] MEDS ORDERED: MORPHINE 4 MG SYG IV PRN (01:45)
[2020-06-07 02:23] LABS: PROTEIN,URINE RANDOM 99.5 mg/dL (0-11.9)
[2020-06-07] MEDS ORDERED: MEROPENEM 500 MG VIAL ONE (02:23)
[2020-06-07] MEDS ORDERED: 0.9%NACL 1000ML 1,000 ML IV ONE (02:23)
[2020-06-07] MEDS ORDERED: 0.9%NACL 50ML 50 ML IV ONE (02:23)
[2020-06-07 02:43] LABS: PHOSPHORUS 8.5 mg/dL (2.5-4.9); THYROID STIMULATING HORMONE 6.09 uIU/mL (0.36-3.74)
[2020-06-07 08:41] LABS: HEMATOCRIT 29.2 % (36-48)
[2020-06-07] MEDS ORDERED: FAMOTIDINE 20MG VIAL IV ONE (08:48)
[2020-06-07] MEDS: FAMOTIDINE 20MG VIAL IV SCH ×2 (09:00→21:26)
[2020-06-07 09:31] LABS: ALBUMIN 1.8 g/dL (3.5-5.0); BILIRUBIN,DIRECT 0.6 mg/dL (0.0-0.3); BILIRUBIN,TOTAL 0.8 mg/dL (0.2-1.0); CRP QUANTITATIVE 77.2 mg/L (0.00-9.0); POTASSIUM 4.7 mmol/L (3.5-5.1)
[2020-06-07 09:35] LABS: CREATININE 8.3 mg/dL (0.5-1.5)
[2020-06-07 09:46] LABS: BASOPHILS % (AUTO) 0.4 % (0.0-5.0); EOSINOPHILS % (AUTO) 0.8 % (0.0-8.0); HEMATOCRIT 29.2 % (36-48); LYMPHOCYTES % (AUTO) 6.5 % (21.0-51.0); MEAN CORPUSCULAR HEMOGLOBIN 28.5 pg (27.0-33.0); MEAN CORPUSCULAR HGB CONC 31.8 g/dL (32.0-36.0); MEAN CORPUSCULAR VOLUME 89.6 fL (79-99); MONOCYTES % (AUTO) 8.3 % (3.0-13.0); NEUTROPHILS % (AUTO) 77.8 % (40.0-77.0); NUCLEATED RED BLOOD CELLS 0.1 % (0.0-0.19); PLATELET COUNT (AUTO) 247 K/uL (130-400); RED BLOOD CELL COUNT(AUTO) 3.26 MIL/uL (4.00-5.50); RED CELL DISTRIBUTION WIDTH 15.7 % (11.0-15.5); WHITE BLOOD COUNT (AUTO) 16.7 K/uL (4.8-10.8)
[2020-06-07] MEDS: SODIUM BICARBONATE 650 MG TAB PO SCH ×2 (12:20→20:37)
[2020-06-07 13:49] LABS: APPEARANCE BODY FLUID TURBID (CLEAR); SPECIMENTYPE,BODY FLUID ASPIRATE
[2020-06-07 13:50] LABS: COLOR,BODY FLUID GREEN (LT YELLOW); TOTAL VOLUME,BODY FLUID 10 mL
[2020-06-07 13:51] LABS: BODY FLUID RBC 7500 /cu. mm.; BODY FLUID WBC 4400 /cu. mm.
[2020-06-07 14:07] LABS: BF LYMPHOCYTE 99 %
[2020-06-07] MEDS ORDERED: LACTATED RINGERS 1000ML 1,000 ML IV ONE (14:07)
[2020-06-07 14:14] LABS: ABG BASE EXCESS -18.9 mmol/L (-2.0-3.0); ABG HCO3 7.9 mmol/L (21.0-28.0); ABG OXYGEN SATURATION 97.4 % (95.0-99.0); ABG PCO2 22 mmHg (32-45)
[2020-06-07] MEDS ORDERED: PHARMACY COMMUNICATION MISC SCH (14:15)
[2020-06-07] MEDS: SODIUM BICARB 8.4% 50ML SYRING 150 MEQ in WATER FOR INJECTION,STERILE 1,000 ML IV SCH (14:30)
[2020-06-07] MEDS ORDERED: LACTATED RINGERS 1000ML 1,000 ML IV SCH ×2 (14:30→15:00)
[2020-06-07 15:42] LABS: HEMATOCRIT 28.7 % (36-48)
[2020-06-07 15:56] LABS: CHLORIDE,URINE RANDOM 42 mmol/L (110-250); CREATININE,URINE RANDOM 72 mg/dL (30-135); POTASSIUM,URINE RANDOM 10 mmol/L (25-125); SODIUM,URINE RANDOM 33 mmol/l (40-220)
[2020-06-07 16:00] LABS: POTASSIUM 4.9 mmol/L (3.5-5.1)
[2020-06-07 16:17] LABS: CREATININE 8.3 mg/dL (0.5-1.5)
[2020-06-07 21:19] LABS: HEMATOCRIT 30.7 % (36-48)
[2020-06-07 21:52] LABS: POTASSIUM 4.9 mmol/L (3.5-5.1)
[2020-06-07 21:56] LABS: CREATININE 8.1 mg/dL (0.5-1.5)
[2020-06-08] VITALS (58 sets, daily range): BP systolic 79–134; BP diastolic 31–68
[2020-06-08] MEDS: MEROPENEM 500 MG VIAL IV SCH ×3 (01:54→17:51)
[2020-06-08 03:50] LABS: HEMATOCRIT 29.7 % (36-48); MEAN CORPUSCULAR HGB CONC 31.3 g/dL (32.0-36.0); MEAN CORPUSCULAR VOLUME 89.5 fL (79-99); NUCLEATED RED BLOOD CELLS 0.3 % (0.0-0.19); PLATELET COUNT (AUTO) 304 K/uL (130-400); RED BLOOD CELL COUNT(AUTO) 3.32 MIL/uL (4.00-5.50); RED CELL DISTRIBUTION WIDTH 15.9 % (11.0-15.5); WHITE BLOOD COUNT (AUTO) 27.3 K/uL (4.8-10.8)
[2020-06-08 04:09] LABS: BAND NEUTROPHILS % (MANUAL) 28 % (0-2); LYMPHOCYTES % (MANUAL) 11 % (22-44); MONOCYTES % (MANUAL) 10 % (2-9); SEGMENTED NEUTROPHILS % 51 % (40-70)
[2020-06-08 04:10] LABS: MAN.DIFF COMMENT-IMPRESSION MANUAL DIFFERENTIAL; PLATELET MORPHOLOGY COMMENT ADEQUATE
[2020-06-08 04:12] LABS: ALBUMIN 1.8 g/dL (3.5-5.0); BILIRUBIN,TOTAL 0.8 mg/dL (0.2-1.0); MAGNESIUM 2.6 mg/dL (1.80-2.40); PHOSPHORUS 9.3 mg/dL (2.5-4.9); TOTAL PROTEIN, SERUM 6.1 g/dL (6.0-8.3); URIC ACID 10.8 mg/dL (2.6-7.2)
[2020-06-08 04:17] LABS: CREATININE 8.1 mg/dL (0.5-1.5)
[2020-06-08] MEDS: 0.9%NACL 1000ML 1,000 ML IV SCH ×3 (04:25→17:45)
[2020-06-08] MEDS: SODIUM BICARB 8.4% 50ML SYRING 150 MEQ in WATER FOR INJECTION,STERILE 1,000 ML IV SCH ×3 (05:12→23:02)
[2020-06-08 08:00] LABS: ABG HCO3 8.1 mmol/L (21.0-28.0); ABG OXYGEN SATURATION 91.7 % (95.0-99.0); ABG PCO2 27 mmHg (32-45)
[2020-06-08] MEDS ORDERED: SODIUM BICARB 50MEQ 50ML VIAL 50 ML ONE (08:19)
[2020-06-08] MEDS: FAMOTIDINE 20MG VIAL IV SCH ×2 (08:41→21:52)
[2020-06-08] MEDS: SODIUM BICARBONATE 650 MG TAB PO SCH ×2 (08:41→21:00)
[2020-06-08] MEDS ORDERED: PHARMACY COMMUNICATION MISC SCH ×2 (09:30→17:15)
[2020-06-08 09:31] LABS: HEMATOCRIT 27.8 % (36-48)
[2020-06-08] MEDS ORDERED: SODIUM BICARB 50MEQ 50ML VIAL IV SCH (09:33)
[2020-06-08 09:46] LABS: ALBUMIN 1.8 g/dL (3.5-5.0); BILIRUBIN,DIRECT 0.6 mg/dL (0.0-0.3); BILIRUBIN,TOTAL 0.9 mg/dL (0.2-1.0); CRP QUANTITATIVE 137.6 mg/L (0.00-9.0); POTASSIUM 4.7 mmol/L (3.5-5.1); TOTAL PROTEIN, SERUM 5.9 g/dL (6.0-8.3)
[2020-06-08 09:50] LABS: CREATININE 8.3 mg/dL (0.5-1.5)
[2020-06-08 13:12] LABS: ABG BASE EXCESS -16.7 mmol/L (-2.0-3.0); ABG HCO3 10.1 mmol/L (21.0-28.0); ABG OXYGEN SATURATION 90.7 % (95.0-99.0); ABG PCO2 27 mmHg (32-45)
[2020-06-08 13:36] LABS: HEMATOCRIT 27.5 % (36-48)
[2020-06-08 13:46] LABS: POTASSIUM 4.7 mmol/L (3.5-5.1)
[2020-06-08 13:47] LABS: CREATININE 8.1 mg/dL (0.5-1.5)
[2020-06-08] MEDS ORDERED: SODIUM BICARB 50MEQ 50ML VIAL 300 ML ONE (16:45)
[2020-06-08] MEDS ORDERED: 0.9% NACL 250ML 250 ML IV ONE (18:02)
[2020-06-08] MEDS: MICAFUNGIN 100MG+NS 100ML 100 ML IV SCH (18:03)
[2020-06-08] MEDS ORDERED: PROPOFOL 1000 MG/100 ML 100 ML IV ONE (18:11)
[2020-06-08] MEDS ORDERED: HEPARIN 5,000 UNIT VIAL ONE (19:26)
[2020-06-08 21:19] LABS: CREATININE 5.9 mg/dL (0.5-1.5); POTASSIUM 3.8 mmol/L (3.5-5.1)
[2020-06-08] MEDS: LINEZOLID 600 MG/ISO-OSM 300 ML IV SCH (21:51)
[2020-06-08 22:26] LABS: ABG BASE EXCESS -11.4 mmol/L (-2.0-3.0); ABG HCO3 11.7 mmol/L (21.0-28.0); ABG OXYGEN SATURATION 97.8 % (95.0-99.0); ABG PCO2 21 mmHg (32-45)
[2020-06-09] VITALS (30 sets, daily range): BP systolic 109–159; BP diastolic 48–83
[2020-06-09] MEDS: 0.9%NACL 1000ML 1,000 ML IV SCH ×2 (00:25→05:52)
[2020-06-09] MEDS: MEROPENEM 500 MG VIAL IV SCH ×3 (01:52→15:48)
[2020-06-09 03:14] LABS: ABG BASE EXCESS -12.9 mmol/L (-2.0-3.0); ABG HCO3 12.9 mmol/L (21.0-28.0); ABG OXYGEN SATURATION 89.3 % (95.0-99.0); ABG PCO2 30 mmHg (32-45)
[2020-06-09] MEDS ORDERED: PHARMACY COMMUNICATION MISC SCH ×2 (04:15→19:45)
[2020-06-09] MEDS ORDERED: SODIUM BICARB 50MEQ 50ML VIAL 150 ML ONE (04:51)
[2020-06-09 05:50] LABS: HEMATOCRIT 26.8 % (36-48); MEAN CORPUSCULAR HEMOGLOBIN 28.4 pg (27.0-33.0); MEAN CORPUSCULAR HGB CONC 32.5 g/dL (32.0-36.0); MEAN CORPUSCULAR VOLUME 87.6 fL (79-99); NUCLEATED RED BLOOD CELLS 0.3 % (0.0-0.19); PLATELET COUNT (AUTO) 218 K/uL (130-400); RED BLOOD CELL COUNT(AUTO) 3.06 MIL/uL (4.00-5.50); RED CELL DISTRIBUTION WIDTH 15.9 % (11.0-15.5); WHITE BLOOD COUNT (AUTO) 26.1 K/uL (4.8-10.8)
[2020-06-09] MEDS: SODIUM BICARB 8.4% 50ML SYRING 150 MEQ in WATER FOR INJECTION,STERILE 1,000 ML IV SCH (05:53)
[2020-06-09 06:14] LABS: ALBUMIN 1.7 g/dL (3.5-5.0); BILIRUBIN,DIRECT 0.5 mg/dL (0.0-0.3); BILIRUBIN,TOTAL 0.9 mg/dL (0.2-1.0); CREATININE 6.2 mg/dL (0.5-1.5); MAGNESIUM 2.2 mg/dL (1.80-2.40); PHOSPHORUS 8.1 mg/dL (2.5-4.9); POTASSIUM 3.9 mmol/L (3.5-5.1); TOTAL PROTEIN, SERUM 5.9 g/dL (6.0-8.3)
[2020-06-09 06:36] LABS: CRP QUANTITATIVE 270.8 mg/L (0.00-9.0)
[2020-06-09 07:34] LABS: LYMPHOCYTES % (MANUAL) 1 % (22-44); MAN.DIFF COMMENT-IMPRESSION MANUAL DIFFERENTIAL; MONOCYTES % (MANUAL) 5 % (2-9); PLATELET MORPHOLOGY COMMENT ADEQUATE; SEGMENTED NEUTROPHILS % 94 % (40-70)
[2020-06-09] MEDS ORDERED: LEVOTHYROXINE 100MCG VIAL IV SCH (08:15)
[2020-06-09] MEDS: FAMOTIDINE 20MG VIAL IV SCH ×2 (09:00→19:55)
[2020-06-09] MEDS: SODIUM BICARBONATE 650 MG TAB PO SCH ×2 (09:00→19:50)
[2020-06-09] MEDS ORDERED: NOREPINEPHRIN 4MG/NS 250ML 250 ML IV SCH (09:18)
[2020-06-09] MEDS ORDERED: HEPARIN 5,000 UNIT VIAL ONE (12:15)
[2020-06-09] MEDS ORDERED: DILTIAZEM 25MG INJ IVP SCH (13:45)
[2020-06-09] MEDS ORDERED: PHENYLEPHRINE HCL 50 MG in 0.9% NACL 250ML 250 ML IV PRN (14:00)
[2020-06-09] MEDS: LINEZOLID 600 MG/ISO-OSM 300 ML IV SCH ×2 (14:30→19:51)
[2020-06-09] MEDS ORDERED: DILTIAZEM 125 MG/25 ML INJ 125 MG in 0.9%NACL 100ML 100 ML IV SCH (15:30)
[2020-06-09] MEDS ORDERED: METOPROLOL TARTRATE 1 MG/ML 5ML VIAL IV ONE (17:31)
[2020-06-09] MEDS: MICAFUNGIN 100MG+NS 100ML 100 ML IV SCH (17:59)
[2020-06-10] VITALS (26 sets, daily range): BP systolic 97–151; BP diastolic 39–83
[2020-06-10] MEDS: MEROPENEM 500 MG VIAL IV SCH ×3 (00:58→17:51)
[2020-06-10 03:36] LABS: ABG BASE EXCESS -8.5 mmol/L (-2.0-3.0); ABG HCO3 15.1 mmol/L (21.0-28.0); ABG OXYGEN SATURATION 95.5 % (95.0-99.0); ABG PCO2 27 mmHg (32-45)
[2020-06-10 03:49] LABS: BASOPHILS % (AUTO) 0.2 % (0.0-5.0); EOSINOPHILS % (AUTO) 0.6 % (0.0-8.0); HEMATOCRIT 23.9 % (36-48); MEAN CORPUSCULAR HEMOGLOBIN 28.3 pg (27.0-33.0); MEAN CORPUSCULAR HGB CONC 33.1 g/dL (32.0-36.0); MEAN CORPUSCULAR VOLUME 85.7 fL (79-99); MONOCYTES % (AUTO) 4.9 % (3.0-13.0); NEUTROPHILS % (AUTO) 87.7 % (40.0-77.0); NUCLEATED RED BLOOD CELLS 0.7 % (0.0-0.19); PLATELET COUNT (AUTO) 188 K/uL (130-400); RED BLOOD CELL COUNT(AUTO) 2.79 MIL/uL (4.00-5.50); RED CELL DISTRIBUTION WIDTH 15.9 % (11.0-15.5); WHITE BLOOD COUNT (AUTO) 22.5 K/uL (4.8-10.8)
[2020-06-10 04:13] LABS: ALBUMIN 1.6 g/dL (3.5-5.0); BILIRUBIN,TOTAL 0.9 mg/dL (0.2-1.0); CREATININE 5.7 mg/dL (0.5-1.5); MAGNESIUM 2.5 mg/dL (1.80-2.40); POTASSIUM 3.8 mmol/L (3.5-5.1); TOTAL PROTEIN, SERUM 5.8 g/dL (6.0-8.3)
[2020-06-10] MEDS ORDERED: LEVOTHYROXINE 75 MCG TABLET PO SCH (06:30)
[2020-06-10] MEDS: FAMOTIDINE 20MG VIAL IV SCH ×2 (08:40→20:08)
[2020-06-10] MEDS: LINEZOLID 600 MG/ISO-OSM 300 ML IV SCH ×2 (08:40→20:08)
[2020-06-10] MEDS: SODIUM BICARBONATE 650 MG TAB PO SCH ×2 (08:50→21:00)
[2020-06-10 11:12] LABS: HEPATITIS A ANTIBODY IGM Negative (Negative); HEPATITIS B CORE IGM Negative (Negative); HEPATITIS Bs ANTIGEN SCREEN P Negative (Negative)
[2020-06-10] MEDS ORDERED: LEVOTHYROXINE 100MCG VIAL IV SCH (12:00)
[2020-06-10] MEDS ORDERED: HEPARIN 5,000 UNIT VIAL IJ PRN (16:45)
[2020-06-10] MEDS ORDERED: 0.9%NACL 1000ML IV PRN (16:45)
[2020-06-10] MEDS ORDERED: NITROGLYCERIN 0.4 MG SL TAB SL PRN (16:45)
[2020-06-10] MEDS ORDERED: ACETAMINOPHEN 325 MG TAB PO PRN (16:45)
[2020-06-10] MEDS ORDERED: ALBUMIN FOR BP SUPPORT MISC PRN (16:45)
[2020-06-10] MEDS ORDERED: 0.9%NACL 1000ML 1,000 ML IV PRN (16:45)
[2020-06-10] MEDS: LEVOTHYROXINE 100MCG VIAL IV SCH (17:50)
[2020-06-10] MEDS: MICAFUNGIN 100MG+NS 100ML 100 ML IV SCH (17:51)
[2020-06-11] VITALS (12 sets, daily range): BP systolic 134–162; BP diastolic 67–84
[2020-06-11] MEDS: MEROPENEM 500 MG VIAL IV SCH ×3 (01:28→17:31)
[2020-06-11 03:36] LABS: BASOPHILS % (AUTO) 0.1 % (0.0-5.0); EOSINOPHILS % (AUTO) 0.1 % (0.0-8.0); HEMATOCRIT 22.6 % (36-48); LYMPHOCYTES % (AUTO) 4.1 % (21.0-51.0); MEAN CORPUSCULAR HEMOGLOBIN 29.1 pg (27.0-33.0); MEAN CORPUSCULAR HGB CONC 34.1 g/dL (32.0-36.0); MEAN CORPUSCULAR VOLUME 85.3 fL (79-99); MONOCYTES % (AUTO) 4.3 % (3.0-13.0); NEUTROPHILS % (AUTO) 89.1 % (40.0-77.0); NUCLEATED RED BLOOD CELLS 0.5 % (0.0-0.19); PLATELET COUNT (AUTO) 197 K/uL (130-400); RED BLOOD CELL COUNT(AUTO) 2.65 MIL/uL (4.00-5.50); RED CELL DISTRIBUTION WIDTH 15.7 % (11.0-15.5); WHITE BLOOD COUNT (AUTO) 20.4 K/uL (4.8-10.8)
[2020-06-11 03:49] LABS: CREATININE 4.5 mg/dL (0.5-1.5); MAGNESIUM 2.1 mg/dL (1.80-2.40); PHOSPHORUS 4.6 mg/dL (2.5-4.9); POTASSIUM 3.3 mmol/L (3.5-5.1)
[2020-06-11 07:12] LABS: ABG BASE EXCESS -1.1 mmol/L (-2.0-3.0); ABG HCO3 22.5 mmol/L (21.0-28.0); ABG PCO2 34 mmHg (32-45)
[2020-06-11] MEDS: LINEZOLID 600 MG/ISO-OSM 300 ML IV SCH ×2 (08:48→20:06)
[2020-06-11] MEDS: SODIUM BICARBONATE 650 MG TAB PO SCH ×2 (08:59→20:13)
[2020-06-11] MEDS: LEVOTHYROXINE 100MCG VIAL IV SCH (09:51)
[2020-06-11] MEDS: FAMOTIDINE 20MG VIAL IV SCH ×2 (10:10→20:13)
[2020-06-11] MEDS: INSULIN HUMULIN R 100 UNIT/ML 3ML SQ SCH ×2 (16:01→20:09)
[2020-06-11] MEDS: MICAFUNGIN 100MG+NS 100ML 100 ML IV SCH (17:32)
[2020-06-11] MEDS ORDERED: INSULIN GLARGINE 100 UNITS/ML 10 ML VIAL SQ SCH (21:00)
[2020-06-12] VITALS (26 sets, daily range): BP systolic 141–186; BP diastolic 63–94
[2020-06-12] MEDS: MEROPENEM 500 MG VIAL IV SCH ×3 (02:21→17:45)
[2020-06-12 03:40] LABS: HEMATOCRIT 22.3 % (36-48); MEAN CORPUSCULAR HEMOGLOBIN 27.9 pg (27.0-33.0); MEAN CORPUSCULAR HGB CONC 32.7 g/dL (32.0-36.0); MEAN CORPUSCULAR VOLUME 85.1 fL (79-99); NUCLEATED RED BLOOD CELLS 0.7 % (0.0-0.19); PLATELET COUNT (AUTO) 175 K/uL (130-400); RED BLOOD CELL COUNT(AUTO) 2.62 MIL/uL (4.00-5.50); RED CELL DISTRIBUTION WIDTH 15.3 % (11.0-15.5); WHITE BLOOD COUNT (AUTO) 14.5 K/uL (4.8-10.8)
[2020-06-12 04:01] LABS: ALBUMIN 1.5 g/dL (3.5-5.0); BILIRUBIN,TOTAL 0.8 mg/dL (0.2-1.0); CREATININE 4.9 mg/dL (0.5-1.5); MAGNESIUM 2.1 mg/dL (1.80-2.40)
[2020-06-12 04:25] LABS: BAND NEUTROPHILS % (MANUAL) 13 % (0-2); LYMPHOCYTES % (MANUAL) 13 % (22-44); MAN.DIFF COMMENT-IMPRESSION MANUAL DIFFERENTIAL; MONOCYTES % (MANUAL) 3 % (2-9); PLATELET MORPHOLOGY COMMENT ADEQUATE; SEGMENTED NEUTROPHILS % 71 % (40-70)
[2020-06-12 07:18] LABS: ABG BASE EXCESS 0.3 mmol/L (-2.0-3.0); ABG HCO3 23.5 mmol/L (21.0-28.0); ABG OXYGEN SATURATION 90.4 % (95.0-99.0); ABG PCO2 32 mmHg (32-45)
[2020-06-12] MEDS ORDERED: POTASSIUM CHLORIDE 10MEQ/100ML 10 MEQ/100 ML ML IV SCH (08:15)
[2020-06-12] MEDS ORDERED: KCL 20 MEQ ERTAB PO SCH (08:30)
[2020-06-12] MEDS: DILTIAZEM 50MG VIAL IV SCH ×2 (08:38→12:30)
[2020-06-12] MEDS: METOPROLOL TARTRATE 25 MG TAB PO SCH ×2 (08:39→21:15)
[2020-06-12] MEDS: SODIUM BICARBONATE 650 MG TAB PO SCH ×2 (09:48→21:15)
[2020-06-12] MEDS: LEVOTHYROXINE 100MCG VIAL IV SCH (10:03)
[2020-06-12] MEDS: FAMOTIDINE 20MG VIAL IV SCH ×2 (10:04→21:15)
[2020-06-12 10:27] LABS: POTASSIUM 2.9 mmol/L (3.5-5.1)
[2020-06-12] MEDS: LINEZOLID 600 MG/ISO-OSM 300 ML IV SCH ×2 (10:33→21:15)
[2020-06-12] MEDS ORDERED: DILTIAZEM 25MG INJ IVP SCH (12:18)
[2020-06-12] MEDS ORDERED: DILTIAZEM 125 MG/25 ML INJ 125 MG in 0.9%NACL 100ML 100 ML IV SCH (12:30)
[2020-06-12] MEDS ORDERED: PHARMACY COMMUNICATION MISC SCH (12:30)
[2020-06-12] MEDS ORDERED: DILTIAZEM 125MG+100 ML NS 125 ML IV SCH (12:30)
[2020-06-12] MEDS: MICAFUNGIN 100MG+NS 100ML 100 ML IV SCH (18:00)
[2020-06-12] MEDS: INSULIN HUMULIN R 100 UNIT/ML 3ML SQ SCH (20:45)
[2020-06-12] MEDS: INSULIN GLARGINE 100 UNITS/ML 10 ML VIAL SQ SCH (21:28)
[2020-06-13] VITALS (17 sets, daily range): BP systolic 129–169; BP diastolic 62–91
[2020-06-13] MEDS: INSULIN HUMULIN R 100 UNIT/ML 3ML SQ SCH ×3 (00:48→23:04)
[2020-06-13] MEDS: MEROPENEM 500 MG VIAL IV SCH ×4 (01:40→23:19)
[2020-06-13 04:58] LABS: ABG BASE EXCESS 2.7 mmol/L (-2.0-3.0); ABG HCO3 26.3 mmol/L (21.0-28.0); ABG OXYGEN SATURATION 98.5 % (95.0-99.0); ABG PCO2 37 mmHg (32-45)
[2020-06-13 06:39] LABS: BASOPHILS % (AUTO) 0.1 % (0.0-5.0); HEMATOCRIT 22.6 % (36-48); LYMPHOCYTES % (AUTO) 7.7 % (21.0-51.0); MEAN CORPUSCULAR HEMOGLOBIN 27.9 pg (27.0-33.0); MEAN CORPUSCULAR HGB CONC 31.9 g/dL (32.0-36.0); MEAN CORPUSCULAR VOLUME 87.6 fL (79-99); MONOCYTES % (AUTO) 5.8 % (3.0-13.0); NEUTROPHILS % (AUTO) 83.3 % (40.0-77.0); NUCLEATED RED BLOOD CELLS 0.2 % (0.0-0.19); PLATELET COUNT (AUTO) 131 K/uL (130-400); RED BLOOD CELL COUNT(AUTO) 2.58 MIL/uL (4.00-5.50); RED CELL DISTRIBUTION WIDTH 15.3 % (11.0-15.5); WHITE BLOOD COUNT (AUTO) 10.8 K/uL (4.8-10.8)
[2020-06-13 07:03] LABS: ALBUMIN 1.7 g/dL (3.5-5.0); BILIRUBIN,TOTAL 0.7 mg/dL (0.2-1.0); CREATININE 3.9 mg/dL (0.5-1.5); MAGNESIUM 2.2 mg/dL (1.80-2.40); POTASSIUM 3.2 mmol/L (3.5-5.1); TOTAL PROTEIN, SERUM 6.3 g/dL (6.0-8.3)
[2020-06-13 08:30] LABS: ABG HCO3 25.7 mmol/L (21.0-28.0); ABG OXYGEN SATURATION 97.8 % (95.0-99.0); ABG PCO2 37 mmHg (32-45)
[2020-06-13] MEDS: METOPROLOL TARTRATE 25 MG TAB PO SCH ×2 (09:00→23:01)
[2020-06-13] MEDS: LINEZOLID 600 MG/ISO-OSM 300 ML IV SCH ×2 (09:14→23:23)
[2020-06-13] MEDS: FAMOTIDINE 20MG VIAL IV SCH ×2 (09:16→23:00)
[2020-06-13] MEDS: SODIUM BICARBONATE 650 MG TAB PO SCH ×2 (09:16→23:00)
[2020-06-13] MEDS: LEVOTHYROXINE 75 MCG TABLET PO SCH (09:32)
[2020-06-13] MEDS: HYDRALAZINE HCL 10 MG TABLET PO SCH ×4 (09:34→23:01)
[2020-06-13] MEDS: KCL 20 MEQ ERTAB PO SCH (12:24)
[2020-06-13] MEDS: MICAFUNGIN 100MG+NS 100ML 100 ML IV SCH (17:44)
[2020-06-13] MEDS ORDERED: ZYVOX 600 MG TAB ONE (22:54)
[2020-06-13] MEDS: INSULIN GLARGINE 100 UNITS/ML 10 ML VIAL SQ SCH (23:02)
[2020-06-14] MEDS ORDERED: METOPROLOL TARTRATE 25 MG TAB ONE (00:24)
[2020-06-14] MEDS ORDERED: METOPROLOL TARTRATE 25 MG TAB PO SCH (00:30)
[2020-06-14 03:56] VITALS: BP 147/69
[2020-06-14 03:58] LABS: HEMATOCRIT 22.4 % (36-48); MEAN CORPUSCULAR HEMOGLOBIN 27.8 pg (27.0-33.0); MEAN CORPUSCULAR HGB CONC 31.7 g/dL (32.0-36.0); MEAN CORPUSCULAR VOLUME 87.8 fL (79-99); NUCLEATED RED BLOOD CELLS 0.3 % (0.0-0.19); PLATELET COUNT (AUTO) 127 K/uL (130-400); RED BLOOD CELL COUNT(AUTO) 2.55 MIL/uL (4.00-5.50); WHITE BLOOD COUNT (AUTO) 10.5 K/uL (4.8-10.8)
[2020-06-14 04:19] LABS: CREATININE 4.2 mg/dL (0.5-1.5); MAGNESIUM 1.8 mg/dL (1.80-2.40); PHOSPHORUS 4.1 mg/dL (2.5-4.9); POTASSIUM 3.1 mmol/L (3.5-5.1)
[2020-06-14 05:02] LABS: BAND NEUTROPHILS % (MANUAL) 2 % (0-2); EOSINOPHILS % (MANUAL) 2 % (1-6); LYMPHOCYTES % (MANUAL) 11 % (22-44); MAN.DIFF COMMENT-IMPRESSION MANUAL DIFFERENTIAL; MONOCYTES % (MANUAL) 6 % (2-9); PLATELET MORPHOLOGY COMMENT ADEQUATE; SEGMENTED NEUTROPHILS % 79 % (40-70)
[2020-06-14] MEDS: INSULIN HUMULIN R 100 UNIT/ML 3ML SQ SCH ×4 (07:30→21:00)
[2020-06-14 08:26] VITALS: BP 141/71
[2020-06-14] MEDS: KCL 20 MEQ ERTAB PO SCH (09:45)
[2020-06-14] MEDS: FAMOTIDINE 20MG VIAL IV SCH ×2 (10:02→21:14)
[2020-06-14] MEDS: SODIUM BICARBONATE 650 MG TAB PO SCH ×2 (10:02→21:14)
[2020-06-14] MEDS: MEROPENEM 500 MG VIAL IV SCH ×2 (10:02→17:29)
[2020-06-14] MEDS: METOPROLOL TARTRATE 25 MG TAB PO SCH ×2 (10:03→21:14)
[2020-06-14] MEDS: HYDRALAZINE HCL 10 MG TABLET PO SCH ×4 (10:03→21:14)
[2020-06-14] MEDS: LINEZOLID 600 MG/ISO-OSM 300 ML IV SCH ×2 (10:06→21:15)
[2020-06-14 12:05] VITALS: BP 169/89
[2020-06-14] MEDS ORDERED: KCL 20 MEQ ERTAB PO SCH (16:00)
[2020-06-14 16:57] VITALS: BP 156/73
[2020-06-14] MEDS: MICAFUNGIN 100MG+NS 100ML 100 ML IV SCH (17:29)
[2020-06-14 20:04] VITALS: BP 159/88
[2020-06-14] MEDS: INSULIN GLARGINE 100 UNITS/ML 10 ML VIAL SQ SCH (21:27)
[2020-06-15 00:08] VITALS: BP 165/86
[2020-06-15] MEDS: MEROPENEM 500 MG VIAL IV SCH ×3 (02:24→17:51)
[2020-06-15 04:04] VITALS: BP 173/84
[2020-06-15 05:20] LABS: BASOPHILS % (AUTO) 0.1 % (0.0-5.0); EOSINOPHILS % (AUTO) 2.4 % (0.0-8.0); HEMATOCRIT 24.1 % (36-48); LYMPHOCYTES % (AUTO) 12.8 % (21.0-51.0); MEAN CORPUSCULAR HEMOGLOBIN 27.8 pg (27.0-33.0); MONOCYTES % (AUTO) 7.1 % (3.0-13.0); NEUTROPHILS % (AUTO) 75.7 % (40.0-77.0); NUCLEATED RED BLOOD CELLS 0.2 % (0.0-0.19); PLATELET COUNT (AUTO) 95 K/uL (130-400); RED BLOOD CELL COUNT(AUTO) 2.77 MIL/uL (4.00-5.50); RED CELL DISTRIBUTION WIDTH 14.6 % (11.0-15.5); WHITE BLOOD COUNT (AUTO) 8.1 K/uL (4.8-10.8)
[2020-06-15 05:49] LABS: ALBUMIN 1.7 g/dL (3.5-5.0); BILIRUBIN,TOTAL 0.7 mg/dL (0.2-1.0); CREATININE 4.3 mg/dL (0.5-1.5); POTASSIUM 3.2 mmol/L (3.5-5.1); TOTAL PROTEIN, SERUM 6.2 g/dL (6.0-8.3); URIC ACID 8.5 mg/dL (2.6-7.2)
[2020-06-15] MEDS: LEVOTHYROXINE 75 MCG TABLET PO SCH (06:53)
[2020-06-15] MEDS: INSULIN HUMULIN R 100 UNIT/ML 3ML SQ SCH ×4 (06:55→21:00)
[2020-06-15 09:05] VITALS: BP 185/87
[2020-06-15] MEDS: KCL 20 MEQ ERTAB PO SCH (09:45)
[2020-06-15] MEDS: METOPROLOL TARTRATE 25 MG TAB PO SCH ×2 (10:45→21:33)
[2020-06-15] MEDS: FAMOTIDINE 20MG VIAL IV SCH ×2 (10:45→21:33)
[2020-06-15] MEDS: SODIUM BICARBONATE 650 MG TAB PO SCH ×2 (10:45→21:33)
[2020-06-15] MEDS: LINEZOLID 600 MG/ISO-OSM 300 ML IV SCH ×2 (10:45→21:33)
[2020-06-15] MEDS ORDERED: HYDRALAZINE HCL 10 MG TABLET ONE (10:47)
[2020-06-15] MEDS: HYDRALAZINE HCL 10 MG TABLET PO SCH (10:48)
[2020-06-15 12:16] VITALS: BP 181/89
[2020-06-15 17:17] VITALS: BP 140/71
[2020-06-15] MEDS: MICAFUNGIN 100MG+NS 100ML 100 ML IV SCH (17:51)
[2020-06-15 20:00] VITALS: BP 151/73
[2020-06-15] MEDS: INSULIN GLARGINE 100 UNITS/ML 10 ML VIAL SQ SCH (21:46)
[2020-06-16] VITALS: BP 164/79
[2020-06-16] MEDS: MEROPENEM 500 MG VIAL IV SCH ×3 (01:31→18:17)
[2020-06-16 04:00] VITALS: BP 157/77
[2020-06-16] MEDS: LEVOTHYROXINE 75 MCG TABLET PO SCH (06:08)
[2020-06-16] MEDS: INSULIN HUMULIN R 100 UNIT/ML 3ML SQ SCH ×4 (06:09→20:35)
[2020-06-16 06:19] LABS: BASOPHILS % (AUTO) 0.1 % (0.0-5.0); EOSINOPHILS % (AUTO) 2.1 % (0.0-8.0); HEMATOCRIT 21.2 % (36-48); LYMPHOCYTES % (AUTO) 12.8 % (21.0-51.0); MEAN CORPUSCULAR HEMOGLOBIN 28.5 pg (27.0-33.0); MEAN CORPUSCULAR HGB CONC 32.5 g/dL (32.0-36.0); MEAN CORPUSCULAR VOLUME 87.6 fL (79-99); MONOCYTES % (AUTO) 8.4 % (3.0-13.0); NEUTROPHILS % (AUTO) 75.5 % (40.0-77.0); PLATELET COUNT (AUTO) 71 K/uL (130-400); RED BLOOD CELL COUNT(AUTO) 2.42 MIL/uL (4.00-5.50); RED CELL DISTRIBUTION WIDTH 14.4 % (11.0-15.5); WHITE BLOOD COUNT (AUTO) 7.3 K/uL (4.8-10.8)
[2020-06-16 06:40] LABS: ALBUMIN 1.7 g/dL (3.5-5.0); BILIRUBIN,TOTAL 0.7 mg/dL (0.2-1.0); CREATININE 3.1 mg/dL (0.5-1.5); POTASSIUM 3.2 mmol/L (3.5-5.1); TOTAL PROTEIN, SERUM 6.1 g/dL (6.0-8.3)
[2020-06-16 07:23] LABS: HEMATOCRIT 21.6 % (36-48)
[2020-06-16 08:00] VITALS: BP 162/78
[2020-06-16] MEDS ORDERED: 0.9% NACL 250ML 250 ML IV ONE ×2 (09:27→20:44)
[2020-06-16] MEDS: KCL 20 MEQ ERTAB PO SCH (09:45)
[2020-06-16] MEDS: METOPROLOL TARTRATE 25 MG TAB PO SCH ×2 (09:53→20:38)
[2020-06-16] MEDS: FAMOTIDINE 20MG VIAL IV SCH ×2 (09:53→20:38)
[2020-06-16] MEDS: LINEZOLID 600 MG/ISO-OSM 300 ML IV SCH ×2 (09:53→20:39)
[2020-06-16] MEDS: SODIUM BICARBONATE 650 MG TAB PO SCH ×2 (09:53→20:38)
[2020-06-16 11:09] VITALS: BP 175/80
[2020-06-16 16:26] VITALS: BP 177/94
[2020-06-16] MEDS: MICAFUNGIN 100MG+NS 100ML 100 ML IV SCH (18:17)
[2020-06-16] MEDS: INSULIN GLARGINE 100 UNITS/ML 10 ML VIAL SQ SCH (20:41)
[2020-06-17] VITALS (7 sets, daily range): BP systolic 156–179; BP diastolic 84–93
[2020-06-17] MEDS: MEROPENEM 500 MG VIAL IV SCH ×3 (03:13→17:32)
[2020-06-17 04:34] LABS: BASOPHILS % (AUTO) 0.3 % (0.0-5.0); EOSINOPHILS % (AUTO) 2.7 % (0.0-8.0); LYMPHOCYTES % (AUTO) 14.6 % (21.0-51.0); MEAN CORPUSCULAR HEMOGLOBIN 28.1 pg (27.0-33.0); MEAN CORPUSCULAR HGB CONC 32.4 g/dL (32.0-36.0); MEAN CORPUSCULAR VOLUME 86.8 fL (79-99); NEUTROPHILS % (AUTO) 72.6 % (40.0-77.0); PLATELET COUNT (AUTO) 55 K/uL (130-400); RED BLOOD CELL COUNT(AUTO) 2.88 MIL/uL (4.00-5.50); WHITE BLOOD COUNT (AUTO) 7.4 K/uL (4.8-10.8)
[2020-06-17 04:56] LABS: ALBUMIN 1.9 g/dL (3.5-5.0); BILIRUBIN,TOTAL 0.9 mg/dL (0.2-1.0); CREATININE 3.4 mg/dL (0.5-1.5); TOTAL PROTEIN, SERUM 6.3 g/dL (6.0-8.3)
[2020-06-17 05:03] LABS: POTASSIUM 2.9 mmol/L (3.5-5.1)
[2020-06-17] MEDS: LEVOTHYROXINE 75 MCG TABLET PO SCH (05:20)
[2020-06-17] MEDS ORDERED: KCL 20 MEQ ERTAB PO SCH ×3 (06:15→18:00)
[2020-06-17] MEDS: INSULIN HUMULIN R 100 UNIT/ML 3ML SQ SCH ×4 (06:28→20:19)
[2020-06-17] MEDS: KCL 20 MEQ ERTAB PO SCH (06:33)
[2020-06-17] MEDS: SODIUM BICARBONATE 650 MG TAB PO SCH ×2 (08:57→20:22)
[2020-06-17] MEDS: METOPROLOL TARTRATE 25 MG TAB PO SCH ×2 (08:57→20:22)
[2020-06-17] MEDS: FAMOTIDINE 20MG VIAL IV SCH ×2 (08:57→20:23)
[2020-06-17] MEDS: LINEZOLID 600 MG/ISO-OSM 300 ML IV SCH ×2 (08:57→20:23)
[2020-06-17] MEDS: POTASSIUM CHLORIDE 10% ELIXIR 20 MEQ/15 ML UDCUP ONE ×2 (11:17→11:18)
[2020-06-17] MEDS: MICAFUNGIN 100MG+NS 100ML 100 ML IV SCH (17:31)
[2020-06-17] MEDS: INSULIN GLARGINE 100 UNITS/ML 10 ML VIAL SQ SCH (20:30)
[2020-06-18] MEDS: MEROPENEM 500 MG VIAL IV SCH ×3 (01:46→17:23)
[2020-06-18] MEDS: LEVOTHYROXINE 75 MCG TABLET PO SCH (01:47)
[2020-06-18 03:32] VITALS: BP 172/83
[2020-06-18 05:41] LABS: BASOPHILS % (AUTO) 0.3 % (0.0-5.0); EOSINOPHILS % (AUTO) 2.3 % (0.0-8.0); HEMATOCRIT 25.1 % (36-48); LYMPHOCYTES % (AUTO) 13.7 % (21.0-51.0); MEAN CORPUSCULAR HEMOGLOBIN 28.5 pg (27.0-33.0); MEAN CORPUSCULAR HGB CONC 32.3 g/dL (32.0-36.0); MEAN CORPUSCULAR VOLUME 88.4 fL (79-99); NEUTROPHILS % (AUTO) 75.2 % (40.0-77.0); PLATELET COUNT (AUTO) 50 K/uL (130-400); RED BLOOD CELL COUNT(AUTO) 2.84 MIL/uL (4.00-5.50); RED CELL DISTRIBUTION WIDTH 14.1 % (11.0-15.5); WHITE BLOOD COUNT (AUTO) 7.4 K/uL (4.8-10.8)
[2020-06-18] MEDS: INSULIN HUMULIN R 100 UNIT/ML 3ML SQ SCH ×4 (06:05→19:50)
[2020-06-18 06:09] LABS: ALBUMIN 1.9 g/dL (3.5-5.0); CREATININE 3.3 mg/dL (0.5-1.5); MAGNESIUM 1.5 mg/dL (1.80-2.40); POTASSIUM 3.5 mmol/L (3.5-5.1); TOTAL PROTEIN, SERUM 6.4 g/dL (6.0-8.3)
[2020-06-18 07:30] VITALS: BP 182/86
[2020-06-18] MEDS: LINEZOLID 600 MG/ISO-OSM 300 ML IV SCH ×2 (08:56→19:45)
[2020-06-18] MEDS: METOPROLOL TARTRATE 25 MG TAB PO SCH ×2 (08:57→19:45)
[2020-06-18] MEDS: FAMOTIDINE 20MG VIAL IV SCH ×2 (08:57→19:45)
[2020-06-18] MEDS: SODIUM BICARBONATE 650 MG TAB PO SCH ×2 (08:57→19:45)
[2020-06-18] MEDS: KCL 20 MEQ ERTAB PO SCH (09:45)
[2020-06-18 11:00] VITALS: BP 167/86
[2020-06-18 16:08] VITALS: BP 160/87
[2020-06-18] MEDS: MICAFUNGIN 100MG+NS 100ML 100 ML IV SCH (17:23)
[2020-06-18 19:51] VITALS: BP 160/80
[2020-06-18] MEDS: INSULIN GLARGINE 100 UNITS/ML 10 ML VIAL SQ SCH (19:52)
[2020-06-18] MEDS: MAGNESIUM 2GM PREMIX 50ML 50 ML IV PRN (22:27)
[2020-06-19 00:32] VITALS: BP 162/74
[2020-06-19] MEDS: MEROPENEM 500 MG VIAL IV SCH ×3 (01:51→17:27)
[2020-06-19 04:04] LABS: BASOPHILS % (AUTO) 0.3 % (0.0-5.0); EOSINOPHILS % (AUTO) 1.7 % (0.0-8.0); LYMPHOCYTES % (AUTO) 14.8 % (21.0-51.0); MEAN CORPUSCULAR HEMOGLOBIN 28.7 pg (27.0-33.0); MEAN CORPUSCULAR HGB CONC 32.3 g/dL (32.0-36.0); MEAN CORPUSCULAR VOLUME 88.7 fL (79-99); MONOCYTES % (AUTO) 7.7 % (3.0-13.0); PLATELET COUNT (AUTO) 45 K/uL (130-400); RED BLOOD CELL COUNT(AUTO) 2.93 MIL/uL (4.00-5.50); RED CELL DISTRIBUTION WIDTH 13.8 % (11.0-15.5); WHITE BLOOD COUNT (AUTO) 6.4 K/uL (4.8-10.8)
[2020-06-19 04:14] LABS: MAGNESIUM 1.7 mg/dL (1.80-2.40); POTASSIUM 3.1 mmol/L (3.5-5.1)
[2020-06-19 04:32] VITALS: BP 163/85
[2020-06-19] MEDS: LEVOTHYROXINE 75 MCG TABLET PO SCH (05:23)
[2020-06-19] MEDS: INSULIN HUMULIN R 100 UNIT/ML 3ML SQ SCH ×4 (05:40→21:00)
[2020-06-19] MEDS: MAGNESIUM 2GM PREMIX 50ML 50 ML IV PRN (06:46)
[2020-06-19 09:04] VITALS: BP 164/83
[2020-06-19] MEDS: LINEZOLID 600 MG/ISO-OSM 300 ML IV SCH ×2 (09:37→21:06)
[2020-06-19] MEDS: METOPROLOL TARTRATE 25 MG TAB PO SCH ×2 (09:38→21:05)
[2020-06-19] MEDS: FAMOTIDINE 20MG VIAL IV SCH ×2 (09:38→21:06)
[2020-06-19] MEDS: SODIUM BICARBONATE 650 MG TAB PO SCH ×2 (09:38→21:05)
[2020-06-19] MEDS: KCL 20 MEQ ERTAB PO SCH (09:45)
[2020-06-19 13:09] VITALS: BP 170/95
[2020-06-19] MEDS: MICAFUNGIN 100MG+NS 100ML 100 ML IV SCH (17:26)
[2020-06-19 17:32] VITALS: BP 166/79
[2020-06-19 20:24] VITALS: BP 135/67
[2020-06-19] MEDS: INSULIN GLARGINE 100 UNITS/ML 10 ML VIAL SQ SCH (21:07)
[2020-06-19] MEDS ORDERED: 0.9% NACL 500ML IV.SOLN 500 ML IV ONE (21:13)
[2020-06-20 00:24] VITALS: BP 161/74
[2020-06-20] MEDS: MEROPENEM 500 MG VIAL IV SCH ×3 (01:52→18:08)
[2020-06-20 04:24] VITALS: BP 178/85
[2020-06-20 05:47] LABS: BASOPHILS % (AUTO) 0.5 % (0.0-5.0); EOSINOPHILS % (AUTO) 2.7 % (0.0-8.0); LYMPHOCYTES % (AUTO) 17.8 % (21.0-51.0); MEAN CORPUSCULAR HEMOGLOBIN 28.8 pg (27.0-33.0); MEAN CORPUSCULAR HGB CONC 32.3 g/dL (32.0-36.0); MONOCYTES % (AUTO) 8.3 % (3.0-13.0); NEUTROPHILS % (AUTO) 70.4 % (40.0-77.0); PLATELET COUNT (AUTO) 51 K/uL (130-400); RED BLOOD CELL COUNT(AUTO) 2.92 MIL/uL (4.00-5.50); RED CELL DISTRIBUTION WIDTH 13.7 % (11.0-15.5); WHITE BLOOD COUNT (AUTO) 6.6 K/uL (4.8-10.8)
[2020-06-20 06:03] LABS: CREATININE 2.6 mg/dL (0.5-1.5)
[2020-06-20] MEDS: INSULIN HUMULIN R 100 UNIT/ML 3ML SQ SCH ×4 (06:06→20:49)
[2020-06-20] MEDS: LEVOTHYROXINE 75 MCG TABLET PO SCH (06:06)
[2020-06-20 06:56] LABS: POTASSIUM 2.7 mmol/L (3.5-5.1)
[2020-06-20] MEDS ORDERED: KCL 20 MEQ ERTAB PO SCH ×2 (08:15)
[2020-06-20] MEDS ORDERED: DIATR MEGLU/DIATRIZOATE SODIUM 30 ML BOTTLE ONE (09:08)
[2020-06-20 09:33] VITALS: BP 187/87
[2020-06-20] MEDS: KCL 20 MEQ ERTAB PO SCH (09:45)
[2020-06-20] MEDS: FAMOTIDINE 20MG VIAL IV SCH ×2 (10:10→20:13)
[2020-06-20] MEDS: LINEZOLID 600 MG/ISO-OSM 300 ML IV SCH ×2 (10:10→20:13)
[2020-06-20 13:08] VITALS: BP 176/71
[2020-06-20] MEDS: METOPROLOL TARTRATE 25 MG TAB PO SCH ×2 (16:19→20:14)
[2020-06-20] MEDS: SODIUM BICARBONATE 650 MG TAB PO SCH ×2 (16:19→20:14)
[2020-06-20 16:43] VITALS: BP 144/67
[2020-06-20] MEDS: MICAFUNGIN 100MG+NS 100ML 100 ML IV SCH (18:08)
[2020-06-20 20:24] VITALS: BP 149/61
[2020-06-20] MEDS: INSULIN GLARGINE 100 UNITS/ML 10 ML VIAL SQ SCH (20:56)
[2020-06-21] VITALS (7 sets, daily range): BP systolic 140–168; BP diastolic 60–91
[2020-06-21] MEDS: INSULIN HUMULIN R 100 UNIT/ML 3ML SQ SCH ×4 (05:13→21:00)
[2020-06-21] MEDS: LEVOTHYROXINE 75 MCG TABLET PO SCH (05:38)
[2020-06-21 06:04] LABS: BASOPHILS % (AUTO) 0.5 % (0.0-5.0); EOSINOPHILS % (AUTO) 4.9 % (0.0-8.0); HEMATOCRIT 24.6 % (36-48); LYMPHOCYTES % (AUTO) 23.6 % (21.0-51.0); MEAN CORPUSCULAR HEMOGLOBIN 28.8 pg (27.0-33.0); MEAN CORPUSCULAR HGB CONC 32.1 g/dL (32.0-36.0); MEAN CORPUSCULAR VOLUME 89.8 fL (79-99); MONOCYTES % (AUTO) 7.9 % (3.0-13.0); NEUTROPHILS % (AUTO) 62.8 % (40.0-77.0); PLATELET COUNT (AUTO) 52 K/uL (130-400); RED BLOOD CELL COUNT(AUTO) 2.74 MIL/uL (4.00-5.50); RED CELL DISTRIBUTION WIDTH 13.6 % (11.0-15.5); WHITE BLOOD COUNT (AUTO) 5.9 K/uL (4.8-10.8)
[2020-06-21 06:18] LABS: CREATININE 2.4 mg/dL (0.5-1.5)
[2020-06-21 07:10] LABS: PLATELET MORPHOLOGY COMMENT MARKED DECREASE
[2020-06-21] MEDS ORDERED: POTASSIUM CHLORIDE 10% ELIXIR 20 MEQ/15 ML UDCUP PO SCH (09:00)
[2020-06-21] MEDS: LINEZOLID 600 MG/ISO-OSM 300 ML IV SCH ×2 (10:02→21:30)
[2020-06-21] MEDS: FAMOTIDINE 20MG VIAL IV SCH ×2 (10:02→21:37)
[2020-06-21] MEDS: SODIUM BICARBONATE 650 MG TAB PO SCH ×2 (10:03→21:30)
[2020-06-21] MEDS: METOPROLOL TARTRATE 25 MG TAB PO SCH ×2 (10:03→21:37)
[2020-06-21] MEDS: MICAFUNGIN 100MG+NS 100ML 100 ML IV SCH (18:26)
[2020-06-21] MEDS: INSULIN GLARGINE 100 UNITS/ML 10 ML VIAL SQ SCH (21:37)
[2020-06-22 04:00] VITALS: BP 129/84
[2020-06-22] MEDS: LEVOTHYROXINE 75 MCG TABLET PO SCH (06:47)
[2020-06-22] MEDS: INSULIN HUMULIN R 100 UNIT/ML 3ML SQ SCH ×4 (07:30→21:00)
[2020-06-22 07:35] VITALS: BP 155/78
[2020-06-22] MEDS: FAMOTIDINE 20MG VIAL IV SCH ×2 (09:25→21:58)
[2020-06-22] MEDS: SODIUM BICARBONATE 650 MG TAB PO SCH ×2 (09:25→21:58)
[2020-06-22] MEDS: METOPROLOL TARTRATE 25 MG TAB PO SCH ×2 (09:25→21:58)
[2020-06-22] MEDS: LINEZOLID 600 MG/ISO-OSM 300 ML IV SCH (09:25)
[2020-06-22] MEDS ORDERED: POTASSIUM CHLORIDE 10% ELIXIR 20 MEQ/15 ML UDCUP PO PRN (09:45)
[2020-06-22] MEDS ORDERED: LIDOCAINE HCL-MPF 1% 2ML VIAL IV PRN ×2 (09:45)
[2020-06-22] MEDS ORDERED: POTASSIUM CHLORIDE 20MEQ/100ML 100 ML IV PRN ×2 (09:45)
[2020-06-22] MEDS: KCL 20 MEQ ERTAB PO PRN (10:06)
[2020-06-22] MEDS ORDERED: KCL 20 MEQ ERTAB PO SCH (11:15)
[2020-06-22 11:34] VITALS: BP 167/81
[2020-06-22 15:57] VITALS: BP 152/74
[2020-06-22] MEDS: MICAFUNGIN 100MG+NS 100ML 100 ML IV SCH (16:59)
[2020-06-22 20:23] VITALS: BP 162/87
[2020-06-22] MEDS: INSULIN GLARGINE 100 UNITS/ML 10 ML VIAL SQ SCH (22:09)
[2020-06-22 23:28] VITALS: BP 163/83
[2020-06-23 03:46] VITALS: BP 155/85
[2020-06-23 05:30] LABS: BASOPHILS % (AUTO) 0.5 % (0.0-5.0); EOSINOPHILS % (AUTO) 3.2 % (0.0-8.0); HEMATOCRIT 24.5 % (36-48); LYMPHOCYTES % (AUTO) 25.2 % (21.0-51.0); MEAN CORPUSCULAR HEMOGLOBIN 28.5 pg (27.0-33.0); MEAN CORPUSCULAR HGB CONC 32.2 g/dL (32.0-36.0); MEAN CORPUSCULAR VOLUME 88.4 fL (79-99); MONOCYTES % (AUTO) 7.9 % (3.0-13.0); NEUTROPHILS % (AUTO) 62.8 % (40.0-77.0); PLATELET COUNT (AUTO) 69 K/uL (130-400); RED BLOOD CELL COUNT(AUTO) 2.77 MIL/uL (4.00-5.50); RED CELL DISTRIBUTION WIDTH 13.2 % (11.0-15.5); WHITE BLOOD COUNT (AUTO) 5.6 K/uL (4.8-10.8)
[2020-06-23 05:43] LABS: ALBUMIN 2.4 g/dL (3.5-5.0); BILIRUBIN,TOTAL 1.3 mg/dL (0.2-1.0); CREATININE 1.8 mg/dL (0.5-1.5); POTASSIUM 3.4 mmol/L (3.5-5.1); TOTAL PROTEIN, SERUM 6.8 g/dL (6.0-8.3)
[2020-06-23] MEDS: INSULIN HUMULIN R 100 UNIT/ML 3ML SQ SCH ×4 (07:30→20:19)
[2020-06-23] MEDS: METOPROLOL TARTRATE 25 MG TAB PO SCH ×2 (08:51→20:19)
[2020-06-23] MEDS: SODIUM BICARBONATE 650 MG TAB PO SCH ×2 (08:51→20:19)
[2020-06-23] MEDS: FAMOTIDINE 20MG VIAL IV SCH ×2 (08:51→20:19)
[2020-06-23] MEDS: LEVOTHYROXINE 75 MCG TABLET PO SCH (08:51)
[2020-06-23] MEDS: KCL 20 MEQ ERTAB PO PRN ×2 (08:52→11:27)
[2020-06-23 09:11] VITALS: BP 163/91
[2020-06-23 12:23] VITALS: BP 159/88
[2020-06-23 16:14] VITALS: BP 142/73
[2020-06-23 20:16] VITALS: BP 168/79
[2020-06-23] MEDS: MICAFUNGIN 100MG+NS 100ML 100 ML IV SCH (20:19)
[2020-06-23] MEDS: INSULIN GLARGINE 100 UNITS/ML 10 ML VIAL SQ SCH (20:52)
[2020-06-23] MEDS ORDERED: MAGNESIUM OXIDE 400 MG TABLET PO SCH (21:00)
== END 2020-06-23 22:55 | DRG 871 ==
LOC: EDH 22:08 → EDHIP 06-07 01:44 → 2CH 06-07 09:48 → 3BH 06-13 13:02
PROVIDERS: ADMIT Internal Medicine; ATTEND Internal Medicine
PROC: 0F9430Z Drainage of Gallbladder with Drainage Device, Percutaneous Approach (ICD-10-PCS; principal; 2020-06-07)
PROC: 5A1D70Z Performance of Urinary Filtration, Intermittent, Less than 6 Hours Per Day (ICD-10-PCS; 2020-06-08)
PROC: 06HY33Z Insertion of Infusion Device into Lower Vein, Percutaneous Approach (ICD-10-PCS; 2020-06-08)
PROC: B54CZZA Ultrasonography of Left Lower Extremity Veins, Guidance (ICD-10-PCS; 2020-06-08)
PROC: 5A1D70Z Performance of Urinary Filtration, Intermittent, Less than 6 Hours Per Day (ICD-10-PCS; 2020-06-09)
PROC: 5A09357 Assistance with Respiratory Ventilation, Less than 24 Consecutive Hours, Continuous Positive Airway Pressure (ICD-10-PCS; 2020-06-09)
PROC: 5A1D70Z Performance of Urinary Filtration, Intermittent, Less than 6 Hours Per Day (ICD-10-PCS; 2020-06-10)
PROC: 5A09357 Assistance with Respiratory Ventilation, Less than 24 Consecutive Hours, Continuous Positive Airway Pressure (ICD-10-PCS; 2020-06-10)
PROC: 5A1D70Z Performance of Urinary Filtration, Intermittent, Less than 6 Hours Per Day (ICD-10-PCS; 2020-06-12)
PROC: 5A09357 Assistance with Respiratory Ventilation, Less than 24 Consecutive Hours, Continuous Positive Airway Pressure (ICD-10-PCS; 2020-06-12)
PROC: 5A1D70Z Performance of Urinary Filtration, Intermittent, Less than 6 Hours Per Day (ICD-10-PCS; 2020-06-15)
PROC: 5A09357 Assistance with Respiratory Ventilation, Less than 24 Consecutive Hours, Continuous Positive Airway Pressure (ICD-10-PCS; 2020-06-15)
PROC: 30233N1 Transfusion of Nonautologous Red Blood Cells into Peripheral Vein, Percutaneous Approach (ICD-10-PCS; 2020-06-16)
DX: A41.50 Gram-negative sepsis, unspecified (principal); R65.21 Severe sepsis with septic shock; E43 Unspecified severe protein-calorie malnutrition; K85.90 Acute pancreatitis without necrosis or infection, unspecified; N17.0 Acute kidney failure with tubular necrosis; J96.01 Acute respiratory failure with hypoxia; N18.6 End stage renal disease; G92 Toxic encephalopathy; N39.0 Urinary tract infection, site not specified; D62 Acute posthemorrhagic anemia; E87.1 Hypo-osmolality and hyponatremia; J81.1 Chronic pulmonary edema; I12.0 Hypertensive chronic kidney disease with stage 5 chronic kidney disease or end stage renal disease; K81.0 Acute cholecystitis; B96.89 Other specified bacterial agents as the cause of diseases classified elsewhere; E11.649 Type 2 diabetes mellitus with hypoglycemia without coma; E11.22 Type 2 diabetes mellitus with diabetic chronic kidney disease; E03.9 Hypothyroidism, unspecified; E86.0 Dehydration; E78.5 Hyperlipidemia, unspecified; E86.1 Hypovolemia; E87.6 Hypokalemia; E87.8 Other disorders of electrolyte and fluid balance, not elsewhere classified; F32.9 Major depressive disorder, single episode, unspecified; G47.33 Obstructive sleep apnea (adult) (pediatric); I25.10 Atherosclerotic heart disease of native coronary artery without angina pectoris; Z20.822 Contact with and (suspected) exposure to COVID-19; D69.6 Thrombocytopenia, unspecified; R53.81 Other malaise; E66.9 Obesity, unspecified; E78.00 Pure hypercholesterolemia, unspecified; E83.42 Hypomagnesemia; I48.0 Paroxysmal atrial fibrillation; Z68.31 Body mass index [BMI] 31.0-31.9, adult; Z74.01 Bed confinement status; Z79.899 Other long term (current) drug therapy; Z82.3 Family history of stroke; Z82.49 Family history of ischemic heart disease and other diseases of the circulatory system; Z83.3 Family history of diabetes mellitus; Z87.01 Personal history of pneumonia (recurrent); Z90.49 Acquired absence of other specified parts of digestive tract; Z98.84 Bariatric surgery status; Z99.2 Dependence on renal dialysis
CPT/HCPCS: 10030; 36415; 36430; 36600; 70250; 70450; 71045; 72170; 73562; 74176; 76770; 76942; 78226; 80048; 80051; 80053; 80074; 80076; 80305; 81001; 82010; 82140; 82150; 82435; 82550; 82570; 82803; 82947; 82948; 83036; 83605; 83690; 83735; 83880; 83935; 84100; 84132; 84145; 84156; 84295; 84300; 84439; 84443; 84481; 84484; 84550; 85014; 85018; 85025; 86140; 86850; 86900; 86901; 86923; 87040; 87071; 87077; 87088; 87186; 87205; 87426; 89051; 90935; 92610; 93005; 93306; 94660; 97039; A9537; C9113; G0378; J0696; J1644; J1815; J2020; J2185; J2248; J2370; J2405; J2704; J3411; J3475; J3490; J7030; J7040; J7050; J7120; P9016; Q9963; U0003

== ENCOUNTER → 2020-09-20 | Outpatient (CLI) | payer BC ==
[~2020-09-20] MED LIST changes: +BENA40TA9 PO; -BENA40TA92 PO; -METR500T PO
== END | disposition home or self-care (01) ==
LOC: RAH 14:38
PROVIDERS: ATTEND Internal Medicine
DX: R55 Syncope and collapse (principal); Z86.73 Personal history of transient ischemic attack (TIA), and cerebral infarction without residual deficits
CPT/HCPCS: 93880

== ENCOUNTER → 2020-11-12 | Outpatient (CLI) | payer MEDICARE | END | disposition home or self-care (01) | LOC: RAH 10:10 | PROVIDERS: ATTEND Internal Medicine | DX: I67.82 Cerebral ischemia (principal); G45.9 Transient cerebral ischemic attack, unspecified; Z86.73 Personal history of transient ischemic attack (TIA), and cerebral infarction without residual deficits | CPT/HCPCS: 70544; 70551 ==